=== PATIENT | female | born 1945 | race Two or more races ===

== ENCOUNTER 2020-03-29 22:01 | Inpatient (IN) | payer MEDICARE, OTHER ==
[~2020-03-29] VITALS: Ht 165.1 cm; Wt 99.3 kg
[2020-03-29 22:12] VITALS: BP 126/78
[2020-03-29] MEDS ORDERED: GLIPIZIDE5 MG ORAL (22:26)
[2020-03-29] MEDS ORDERED: METOPROLOL SUC100 MG ORAL (22:27)
[2020-03-29] MEDS ORDERED: METFORMIN HCL500 M1 ORAL (22:28)
[2020-03-29] MEDS ORDERED: TRAMADOL HCL50 MG ORAL (22:28)
[2020-03-29] MEDS ORDERED: ZOFRAN4 M3 ORAL (22:28)
[2020-03-29 23:38] LABS: BASOPHILS % (AUTO) 1.1 % (0.0-2.0); EOSINOPHILS % (AUTO) 0.8 % (0.0-3.0); HEMATOCRIT 38.1 % (37.0-47.0); HEMOGLOBIN 13.4 G/DL (12.0-16.0); LYMPHOCYTES % (AUTO) 25.8 % (20.0-45.0); MEAN CORPUSCULAR VOLUME 89 FL (80-99); MONOCYTES % (AUTO) 9.4 % (1.0-10.0); NEUTROPHILS % (AUTO) 62.9 % (45.0-75.0); PLATELET COUNT 204 K/UL (150-450); RED BLOOD COUNT 4.29 M/UL (4.20-5.40); RED CELL DISTRIBUTION WIDTH 15.9 % (11.6-14.8); WHITE BLOOD COUNT 7.9 K/UL (4.8-10.8)
[2020-03-29 23:50] LABS: CALCIUM 9.8 MG/DL (8.5-10.1); CREATININE 1.4 MG/DL (0.55-1.30)
[2020-03-30 00:01] LABS: ALBUMIN 2.6 G/DL (3.4-5.0); ALBUMIN/GLOBULIN RATIO 0.5 (1.0-2.7); BILIRUBIN,TOTAL 0.4 MG/DL (0.2-1.0)
[2020-03-30 00:10] VITALS: BP 136/58
[2020-03-30 00:12] LABS: APPEARANCE,URINE SLIGHTLY CLOUDY; BILIRUBIN, URINE NEGATIVE (NEGATIVE); GLUCOSE, URINE (UA) NEGATIVE (NEGATIVE); KETONES,URINE 3+ (NEGATIVE); LEUKOCYTE ESTERASE ,URINE 1+ (NEGATIVE); NITRITE,URINE NEGATIVE (NEGATIVE); PH,URINE 5 (4.5-8.0); PROTEIN,URINE 2+ (NEGATIVE); UROBILINOGEN,URINE 1 MG/DL (0.0-1.0)
[2020-03-30 00:13] LABS: COLOR,URINE YELLOW
[2020-03-30] MEDS ORDERED: D5 1/2NS 1000ml IV ONE (00:15)
--- NOTE | 2020-03-30 01:18 | Diagnostic Imaging Report ---
EXAM: XR Chest, 1 View CLINICAL HISTORY: WEAK TECHNIQUE: Frontal view of the chest. COMPARISON: No relevant prior studies available. FINDINGS: Lungs: Bilateral mid and lower lung ill-defined opacity could represent some component of atelectasis or consolidation. Low lung volumes with bronchovascular crowding. Pleural space: Likely small right pleural effusion. No pneumothorax. Heart: Cardiomegaly. Mediastinum: Prominent right hilum could represent vascular enlargement or hilar adenopathy. Bones/joints: Possibly sclerotic right scapula can be further evaluated at CT. Soft tissues: Left axillary surgical clips. IMPRESSION: 1. Bilateral mid and lower lung ill-defined opacity could represent some component of atelectasis or consolidation. 2. Recommend contrast enhanced CT chest to further characterize possible hilar mass or vascular enlargement. Neoplasm not excluded. 3. Likely small right pleural effusion. 4. Low lung volumes with bronchovascular crowding. 5. Possibly sclerotic right scapula can be further evaluated at CT. 6. Cardiomegaly. 7. Left axillary surgical clips.
[2020-03-30] MEDS ORDERED: Cefepime HCl 1 GM in D5W 55 ML IVPB ONE (02:00)
[2020-03-30] MEDS ORDERED: Azithromycin 500 MG in NS 275 ML IV ONE (02:00)
[2020-03-30 02:27] VITALS: BP 132/53
--- NOTE | 2020-03-30 02:32 | Emergency Room Report ---
History of Present Illness General Chief Complaint: Generalized Weakness Source: Patient, EMS Present Illness HPI 74-year-old female presents for evaluation. Brought in by EMS from home. Per family patient not eating well and drinking well for the last several days. Had been seen at [facility] for this. There was a discussion of a G- tube but patient declined. There was discussion of hospice been no action has been taken yet. Per family patient feels weak. Denies fevers or chills. Denies chest pain or shortness of breath. No nausea or vomiting. No other aggravating relieving factors. No other associated symptoms Allergies: Coded Allergies: No Known Allergies (Unverified , 03/29/20) COVID-19 Screening Contact w/high risk pt: No Experienced COVID-19 symptoms?: No COVID-19 Testing performed LAN MANAGER: No Patient History Past Medical History: DM, HTN Past Surgical History: none Pertinent Family History: none Social History: Denies: smoking, alcohol use, drug use Now: No Immunizations: UTD Reviewed Nursing Documentation: PMH: Agreed; PSxH: Agreed Nursing Documentation-PMH Past Medical History: No History, Except For Hx Hypertension: Yes Hx Diabetes: Yes Review of Systems All Other Systems: negative except mentioned in HPI Physical Exam Vital Signs Date Time Temp Pulse Resp B/P (MAP) Pulse Ox O2 Delivery O2 Flow Rate FiO2 03/29/20 22:12 98.4 80 20 106/64 (78) 99 Nasal Cannula 2.0 Sp02 EP Interpretation: reviewed, normal General Appearance: no apparent distress, alert, GCS 15, non-toxic, obese Head: normocephalic, atraumatic Eyes: bilateral eye normal inspection, bilateral eye PERRL ENT: hearing grossly normal, normal pharynx, no angioedema, normal voice Neck: full range of motion, supple/symm/no masses Respiratory: chest non-tender, lungs clear, normal breath sounds, speaking full sentences Cardiovascular #1: regular rate, rhythm, no edema Cardiovascular #2: 2+ carotid (R), 2+ carotid (L), 2+ radial (R), 2+ radial ( L), 2+ dorsalis pedis (R), 2+ dorsalis pedis (L) Gastrointestinal: normal bowel sounds, non tender, soft, non-distended, no guarding, no rebound Rectal: deferred Genitourinary: normal inspection, no CVA tenderness Musculoskeletal: back normal, normal range of motion, gait/station normal, non-tender Neurologic: alert, motor strength/tone normal, oriented x3, sensory intact, responsive, speech normal Psychiatric: judgement/insight normal, memory normal, mood/affect normal, no suicidal/homicidal ideation Reflexes: 3+ bicep (R), 3+ bicep (L), 3+ tricep (R), 3+ tricep (L), 3+ knee (R), 3+ knee (L) Skin: other - see nursing notes Lymphatic: no adenopathy Medical Decision Making Diagnostic Impression: Primary Impression: Episode of generalized weakness Additional Impressions: Pneumonia Qualified Codes: J18.9 - Pneumonia, unspecified organism FTT (failure to thrive) in adult ER Course Hospital Course 74-year-old female presenting to ED with generalized weakness, poor intake Differential diagnoses include: Pneumonia, UTI, sepsis, dehydration, NH/unstable angina Clinical course Patient placed on stretcher. 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 After initial history and physical, I ordered labs, IV fluids, EKG, chest x-ray, blood cultures, UA. Labs - BUN/Cr elevated, no leukocytosis, UA negative EKG - NSR no acute ischemic changes interpreted by me CXR - R sided consolidation rapid covid negative Abx given. IVFs given Case discussed with Dr Barreto and they agreed to admit patient to their service for further care and support I feel this is a highly complex case requiring extensive working including EKG/Rhythm strip, Xray/CT/US, Blood/urine lab work, repeat exams while in ED, and administration of strong opiates/narcotics for pain control, admission to hospital or close patient follow up. Diagnosis - FTT, pneumonia, generalized weakness Patient admitted to floor in serious condition Laboratory Tests Test 03/29/20 22:40 03/29/20 23:50 White Blood Count 7.9 K/UL (4.8-10.8) Red Blood Count 4.29 M/UL (4.20-5.40) Hemoglobin 13.4 G/DL (12.0-16.0) Hematocrit 38.1 % (37.0-47.0) Mean Corpuscular Volume 89 FL (80-99) Mean Corpuscular Hemoglobin 31.1 PG (27.0-31.0) H Mean Corpuscular Hemoglobin Concent 35.1 G/DL (32.0-36.0) Red Cell Distribution Width 15.9 % (11.6-14.8) H Platelet Count 204 K/UL (150-450) Mean Platelet Volume 8.8 FL (6.5-10.1) Neutrophils (%) (Auto) 62.9 % (45.0-75.0) Lymphocytes (%) (Auto) 25.8 % (20.0-45.0) Monocytes (%) (Auto) 9.4 % (1.0-10.0) Eosinophils (%) (Auto) 0.8 % (0.0-3.0) Basophils (%) (Auto) 1.1 % (0.0-2.0) Sodium Level 137 MMOL/L (136-145) Potassium Level 4.0 MMOL/L (3.5-5.1) Chloride Level 99 MMOL/L (98-107) Carbon Dioxide Level 26 MMOL/L (21-32) Anion Gap 12 mmol/L (5-15) Blood Urea Nitrogen 31 mg/dL (7-18) H Creatinine 1.4 MG/DL (0.55-1.30) H Estimat Glomerular Filtration Rate 36.7 mL/min (>60) Glucose Level 159 MG/DL (74-106) H Lactic Acid Level 1.10 mmol/L (0.4-2.0) Calcium Level 9.8 MG/DL (8.5-10.1) Total Bilirubin 0.4 MG/DL (0.2-1.0) Aspartate Amino Transf (AST/SGOT) 46 U/L (15-37) H Alanine Aminotransferase (ALT/SGPT) 15 U/L (12-78) Alkaline Phosphatase 98 U/L (46-116) Pro-B-Type Natriuretic Peptide 287 pg/mL (0-125) H Total Protein 7.6 G/DL (6.4-8.2) Albumin 2.6 G/DL (3.4-5.0) L Globulin 5.0 g/dL Albumin/Globulin Ratio 0.5 (1.0-2.7) L Urine Color Yellow Urine Appearance Slightly cloudy Urine pH 5 (4.5-8.0) Urine Specific [place] 1.025 (1.005-1.035) Urine Protein 2+ (NEGATIVE) H Urine Glucose (UA) Negative (NEGATIVE) Urine Ketones 3+ (NEGATIVE) H Urine Blood Negative (NEGATIVE) Urine Nitrite Negative (NEGATIVE) Urine Bilirubin Negative (NEGATIVE) Urine Urobilinogen 1 MG/DL (0.0-1.0) H Urine Leukocyte Esterase 1+ (NEGATIVE) H Urine RBC 0-2 /HPF (0 - 2) Urine WBC 0-2 /HPF (0 - 2) Urine Squamous Epithelial Cells Few /LPF (NONE/OCC) Urine Bacteria Few /HPF (NONE) Urine Hyaline Casts 2-4 /LPF (NONE) H Urine Granular Casts 0-2 /LPF (NONE) H EKG Diagnostic Results Rate: normal Rhythm: NSR ST Segments: no acute changes ASA given to the pt in ED: No Rhythm Strip Diag. Results EP Interpretation: yes Rhythm: NSR, no PVC's, no ectopy Chest X-Ray Diagnostic Results Chest X-Ray Diagnostic Results : Chest X-Ray Ordered: Yes # of Views/Limited/Complete: 1 View Indication: Other EP Interpretation: Yes Interpretation: no pneumothorax, other - R lung consolidation Impression: Other - PNA Electronically Signed by: Electronically signed by Marciano Frias MD Last Vital Signs Date Time Temp Pulse Resp B/P (MAP) Pulse Ox O2 Delivery O2 Flow Rate FiO2 03/29/20 22:12 91 20 Nasal Cannula 2.0 03/29/20 22:12 98.4 126/78 99 Status: improved Disposition: ADMITTED INPATIENT Condition: Serious Referrals: NON PHYSICIAN (PCP) Marcinao Frias MD Mar 30, 2020 02:32
[2020-03-30] MEDS ORDERED: Potassium Chloride 10 MEQ in D5 1/2NS 1,000 ML IV SCH (06:00)
[2020-03-30] MEDS: D5 1/2NS 1,000 ML IV SCH ×2 (06:24→21:28)
[2020-03-30 08:00] VITALS: BP 134/81
[2020-03-30] MEDS: Aspirin EC 81mg tab ORAL SCH (09:00)
--- NOTE | 2020-03-30 09:45 | History and Physical Report ---
DATE OF ADMISSION: 03/30/2020 CHIEF COMPLAINT: Failure to thrive. HISTORY OF PRESENT ILLNESS: Patient is a 74-year-old female who was apparently brought in by family members because of poor p.o. intake. She apparently was hospitalized at an outside hospital, was offered a G-tube, but family declined. She has not been eating well at home. Family brought her in reportedly with concerns about poor p.o. intake and for possible hospice evaluation. PAST MEDICAL HISTORY: Patient does not recall. PAST SURGICAL HISTORY: Unknown. CURRENT MEDICATIONS: Unknown. FAMILY HISTORY: Unknown. SOCIAL HISTORY: There is no known history of tobacco, ethanol, or drugs. REVIEW OF SYSTEMS: GENERAL: No fever or chills. HEENT: No headaches or visual changes. CARDIOPULMONARY: No chest pain or shortness of breath. GASTROINTESTINAL: No nausea or vomiting. Positive anorexia. GENITOURINARY: No urgency or frequency. MUSCULOSKELETAL: No joint pain or swelling. NEUROLOGIC: No evidence of seizures. PHYSICAL EXAMINATION: VITAL SIGNS: Temperature 98, pulse 81, respirations 18, blood pressure 136/58. GENERAL: Patient is well developed, in no apparent distress. HEART: Regular rate and rhythm. LUNGS: Clear. Patient appears to have a mastectomy on the left side. ABDOMEN: Soft, nontender, nondistended. EXTREMITIES: No clubbing or cyanosis. LABORATORY DATA: UA was clear. White count 7, hemoglobin 13. Sodium 137, BUN 31, creatinine 1.4. ASSESSMENT: This is an elderly female with no known past medical history presented with complaints of anorexia and failure to thrive. PLAN: We will try to contact family members regarding patient's past medical history. We will hydrate gently. Empiric antibiotics to cover for pneumonia. We will consider CT scan of the chest, abdomen, and pelvis. Encourage p.o. intake. Dennis Barreto M.D. DR: DAWSON JOB#: [id number] CC:
[2020-03-30] MEDS ORDERED: Varibar Thin Liquid powder 148gm MC PRN (10:15)
[2020-03-30] MEDS ORDERED: Varibar Nectar 240ml MC PRN (10:15)
[2020-03-30] MEDS ORDERED: Varibar Pudding 230ml MC PRN (10:15)
[2020-03-30] MEDS ORDERED: Varibar Honey 250ml MC PRN (10:15)
[2020-03-30 10:45] LABS: BASOPHILS % (AUTO) 1.2 % (0.0-2.0); EOSINOPHILS % (AUTO) 1.6 % (0.0-3.0); HEMATOCRIT 39.4 % (37.0-47.0); LYMPHOCYTES % (AUTO) 30.3 % (20.0-45.0); MEAN CORPUSCULAR VOLUME 93 FL (80-99); NEUTROPHILS % (AUTO) 57.9 % (45.0-75.0); PLATELET COUNT 199 K/UL (150-450); RED BLOOD COUNT 4.24 M/UL (4.20-5.40); RED CELL DISTRIBUTION WIDTH 16.3 % (11.6-14.8); WHITE BLOOD COUNT 7.9 K/UL (4.8-10.8)
[2020-03-30 11:17] LABS: ALANINE AMINOTRANSFERASE 14 U/L (12-78); ALBUMIN 2.6 G/DL (3.4-5.0); ALBUMIN/GLOBULIN RATIO 0.5 (1.0-2.7); ALKALINE PHOSPHATASE 98 U/L (46-116); ANION GAP 13 mmol/L (5-15); ASPARTATE AMINO TRANSFERASE 48 U/L (15-37); BILIRUBIN,TOTAL 0.4 MG/DL (0.2-1.0); BLOOD UREA NITROGEN 27 mg/dL (7-18); CALCIUM 9.6 MG/DL (8.5-10.1); CARBON DIOXIDE 26 MMOL/L (21-32); CHLORIDE 100 MMOL/L (98-107); CREATININE 1.2 MG/DL (0.55-1.30); POTASSIUM 3.7 MMOL/L (3.5-5.1); SODIUM 139 MMOL/L (136-145)
[2020-03-30 12:00] VITALS: BP 154/78
--- NOTE | 2020-03-30 12:15 | Consultation ---
DATE OF CONSULTATION: 03/30/2020 CHIEF COMPLAINT: Failure to thrive. HISTORY OF PRESENT ILLNESS: This is a 74-year-old female was brought to the hospital by family because the patient has poor p.o. intake. Apparently, this has been going on for a while and apparently in the past the patient refused PEG but now agreeing. PAST MEDICAL HISTORY: The patient has no history per chart. PAST SURGICAL HISTORY: No surgeries. ALLERGIES: No known drug allergies. MEDICATIONS: Please see medication reconciliation list. FAMILY HISTORY: Noncontributory. SOCIAL HISTORY: There is no history of tobacco, alcohol, or drug abuse. PHYSICAL EXAMINATION: VITAL SIGNS: Temperature 97.7, pulse is 82, respirations 20, blood pressure 134/81. HEENT: Normocephalic and atraumatic. Sclerae anicteric. NECK: Supple. No evidence of obvious lymphadenopathy. CARDIOVASCULAR: Regular rate and rhythm. Plus S1-S2. LUNGS: Clear to auscultation bilaterally. ABDOMEN: Soft, nontender. No rebound. No guarding. No peritoneal sign. EXTREMITIES: No cyanosis, no clubbing, no edema. LABORATORY DATA: White count 7.9, hemoglobin 13, hematocrit 39, platelet count is 199. BUN is 31, creatinine is 1.4. Hemoglobin A1c 7.8. Albumin is 2.6. ASSESSMENT AND PLAN: A 74-year-old female with failure to thrive, diabetes, hypoalbuminemia. I spoke with the daughter over the phone. She agreed for the EGD and PEG placement. The procedure was explained to her in detail. Plan to schedule the patient for tomorrow. I want to thank, Dr. Barreto, for this kind referral. Alonzo Boothe M.D. DR: Adelfo JOB#: [id number] CC: Dennis Barreto M.D.
[2020-03-30] MEDS: NovoLOG Insulin Flexpen SUBQ SCH ×3 (12:54→21:30)
[2020-03-30] MEDS: Piperacillin/Tazobactam 3.375 GM in NS 110 ML IVPB SCH ×2 (14:31→21:28)
[2020-03-30 16:00] VITALS: BP 148/76
[2020-03-30 20:00] VITALS: BP 155/85
[2020-03-31] VITALS: BP 139/80
[2020-03-31 03:54] VITALS: BP 159/91
[2020-03-31] MEDS: Piperacillin/Tazobactam 3.375 GM in NS 110 ML IVPB SCH ×3 (05:09→21:24)
[2020-03-31] MEDS: NovoLOG Insulin Flexpen SUBQ SCH ×4 (06:39→21:25)
[2020-03-31 07:05] LABS: BASOPHILS % (AUTO) 0.7 % (0.0-2.0); HEMATOCRIT 37.9 % (37.0-47.0); HEMOGLOBIN 12.7 G/DL (12.0-16.0); LYMPHOCYTES % (AUTO) 23.7 % (20.0-45.0); MEAN CORPUSCULAR VOLUME 94 FL (80-99); MONOCYTES % (AUTO) 9.7 % (1.0-10.0); NEUTROPHILS % (AUTO) 63.9 % (45.0-75.0); PLATELET COUNT 188 K/UL (150-450); RED BLOOD COUNT 4.04 M/UL (4.20-5.40); RED CELL DISTRIBUTION WIDTH 15.7 % (11.6-14.8); WHITE BLOOD COUNT 8.4 K/UL (4.8-10.8)
[2020-03-31 08:00] VITALS: BP 166/90
[2020-03-31 08:18] LABS: ALBUMIN 2.4 G/DL (3.4-5.0); ALBUMIN/GLOBULIN RATIO 0.5 (1.0-2.7); BILIRUBIN,TOTAL 0.3 MG/DL (0.2-1.0); CALCIUM 9.2 MG/DL (8.5-10.1); CREATININE 1.3 MG/DL (0.55-1.30); POTASSIUM 3.5 MMOL/L (3.5-5.1)
[2020-03-31] MEDS: D5 1/2NS 1,000 ML IV SCH ×2 (08:51→21:24)
[2020-03-31] MEDS: Aspirin EC 81mg tab ORAL SCH (08:51)
--- NOTE | 2020-03-31 09:06 | General Progress Note ---
Subjective ROS Limited/Unobtainable: No Constitutional: Reports: malaise, weakness HEENT: Reports: no symptoms Cardiovascular: Reports: edema Respiratory: Reports: no symptoms Gastrointestinal/Abdominal: Reports: no symptoms Genitourinary: Reports: no symptoms Neurologic/Psychiatric: Reports: anxiety Endocrine: Reports: no symptoms Hematologic/Lymphatic: Reports: no symptoms Allergies: Coded Allergies: No Known Allergies (Unverified , 03/29/20) All Systems: reviewed and negative except above Subjective no complaints. no chest pain or sob. no fevers or chills. poor po intake. CT pending. Objective Last 24 Hour Vital Signs Date Time Temp Pulse Resp B/P (MAP) Pulse Ox O2 Delivery O2 Flow Rate FiO2 03/31/20 03:54 98.9 109 20 159/91 (113) 93 03/31/20 00:00 98.0 106 22 139/80 (99) 93 03/30/20 21:00 Nasal Cannula 2.0 03/30/20 20:00 98.1 104 22 155/85 (108) 95 03/30/20 16:00 97.6 95 20 148/76 (100) 96 03/30/20 12:00 97.4 99 20 154/78 (103) 96 03/30/20 09:00 Nasal Cannula 2.0 Intake and Output 03/30/20 03/31/20 19:02 07:02 Intake Total 240 ml 150 ml Output Total 200 ml 350 ml Balance 40 ml -200 ml Intake Oral 240 ml 150 ml Output Urine Total 200 ml 350 ml Laboratory Tests 03/30/20 10:38: White Blood Count 7.9, Red Blood Count 4.24, Hemoglobin 13.0, Hematocrit 39.4, Mean Corpuscular Volume 93, Mean Corpuscular Hemoglobin 30.6, Mean Corpuscular Hemoglobin Concent 32.9, Red Cell Distribution Width 16.3H, Platelet Count 199, Mean Platelet Volume 8.6, Neutrophils (%) (Auto) 57.9, Lymphocytes (%) (Auto) 30.3, Monocytes (%) (Auto) 9.0, Eosinophils (%) (Auto) 1.6, Basophils (%) (Auto) 1.2, Sodium Level 139, Potassium Level 3.7, Chloride Level 100, Carbon Dioxide Level 26, Anion Gap 13, Blood Urea Nitrogen 27H, Creatinine 1.2, Estimat Glomerular Filtration Rate 43.9, Glucose Level 176H, Hemoglobin A1c 7.8H, Calcium Level 9.6, Total Bilirubin 0.4, Aspartate Amino Transf (AST/SGOT) 48H, Alanine Aminotransferase (ALT/SGPT) 14, Alkaline Phosphatase 98, Total Protein 7.5, Albumin 2.6L, Globulin 4.9, Albumin/Globulin Ratio 0.5L, Vitamin B12 Level > 2000H, Folate 7.2L, Thyroid Stimulating Hormone (TSH) 3.717 03/30/20 11:55: POC Whole Blood Glucose 167H 03/30/20 21:18: POC Whole Blood Glucose [Pending] 03/31/20 05:00: White Blood Count 8.4, Red Blood Count 4.04L, Hemoglobin 12.7, Hematocrit 37.9, Mean Corpuscular Volume 94, Mean Corpuscular Hemoglobin 31.4H, Mean Corpuscular Hemoglobin Concent 33.5, Red Cell Distribution Width 15.7H, Platelet Count 188, Mean Platelet Volume 7.9, Neutrophils (%) (Auto) 63.9, Lymphocytes (%) (Auto) 23.7, Monocytes (%) (Auto) 9.7, Eosinophils (%) (Auto) 2.0, Basophils (%) (Auto) 0.7, Sodium Level 137, Potassium Level 3.5, Chloride Level 100, Carbon Dioxide Level 27, Anion Gap 10, Blood Urea Nitrogen 24H, Creatinine 1.3, Estimat Glomerular Filtration Rate 40.1, Glucose Level 174H, Calcium Level 9.2, Total Bilirubin 0.3, Aspartate Amino Transf (AST/SGOT) 44H, Alanine Aminotransferase (ALT/SGPT) 14, Alkaline Phosphatase 92, Total Protein 7.1, Albumin 2.4L, Globulin 4.7, Albumin/Globulin Ratio 0.5L, Prothrombin Time 11.3, Prothromb Time International Ratio 1.0, Activated Partial Thromboplast Time 26 03/31/20 06:33: POC Whole Blood Glucose [Pending] Height (Feet): 5 Height (Inches): 2.00 Weight (Pounds): 219 General Appearance: WD/WN, alert EENT: PERRL/EOMI Neck: non-tender, normal alignment, supple Cardiovascular: normal peripheral pulses, normal rate Respiratory/Chest: chest wall non-tender, lungs clear, normal breath sounds Abdomen: normal bowel sounds, non tender, soft, no organomegaly Edema: no edema noted Pedal (L), no edema noted Pedal (R) Neurologic: optimization engineer II-XII grossly normal, alert, responsive Assessment/Plan Problem List: (1) Pneumonia ICD Codes: J18.9 - Pneumonia, unspecified organism SNOMED: 703733277 Qualifiers: Qualified Codes: J18.9 - Pneumonia, unspecified organism (2) FTT (failure to thrive) in adult ICD Codes: R62.7 - Adult failure to thrive SNOMED: 643021173 (3) Episode of generalized weakness ICD Codes: R53.1 - Weakness SNOMED: 24406704 Status: stable Assessment/Plan: encourage pos ct chest abd pelvis possible GT if not eating- family requesting GI eval iv abx for pna BP rx Dennis Barreto MD Mar 31, 2020 09:06
[2020-03-31] MEDS ORDERED: HydrALAZINE 25mg tab ORAL PRN (09:15)
[2020-03-31 12:00] VITALS: BP 160/91
[2020-03-31 16:00] VITALS: BP 144/83
--- NOTE | 2020-03-31 16:39 | Consultation ---
History of Present Illness General Date patient seen: Mar 31, 2020 Reason for Hospitalization: Generalized Weakness Present Illness HPI 74 year old female brought in by family for decreased oral intake and ftt. noted to have abnormal labs and decubitus ulcer on admission. surgery called to evaluate and assist with care. patient seen, chart reviewed, patient examined. Allergies: Coded Allergies: No Known Allergies (Unverified , 03/29/20) COVID-19 Screening Contact w/high risk pt: Yes Experienced COVID-19 symptoms?: No Medication History Scheduled Glipizide* (Glipizide*), 10 MG ORAL BIDAC, (Reported) Metformin Hcl* (Metformin Hcl*), 500 MG ORAL TWICE A DAY, (Reported) Metoprolol Succinate* (Metoprolol Succinate*), 100 MG ORAL DAILY, (Reported) Scheduled PRN Ondansetron* (Zofran*), 4 MG ORAL DAILY PRN for Nausea & Vomiting, (Reported) Tramadol Hcl* (Ultram*), 50 MG ORAL Q6H PRN for For Pain, (Reported) Patient History Limited by: medical condition History Provided By: Medical Record, PMD Healthcare decision maker Resuscitation status Advanced Directive on File Past Medical/Surgical History Past Medical/Surgical History: (1) Pneumonia (2) FTT (failure to thrive) in adult (3) Episode of generalized weakness Review of Systems Review of Symptoms General ROS: no weight loss or fever Psychological ROS: no depression or mood changes, no memory loss Ophthalmic ROS: no visual changes or eye irritation ENT ROS: no nasal congestion, hearing loss, dizziness Allergy and Immunology ROS: no allergic symptoms or urticaria Hematological and Lymphatic ROS: no swollen glands, unusual bleeding or bruising Endocrine ROS: no polyuria, polydipsia, weight changes, temperature intolerance Respiratory ROS: no cough, shortness of breath, or wheezing Cardiovascular ROS: no chest pain or dyspnea on exertion Gastrointestinal ROS: denies abdominal pain, bright red blood in stool. Musculoskeletal ROS: no myalgias or arthralgias Neurological ROS: no TIA or stroke symptoms Dermatological ROS: no new or changing skin lesions, rashes or pruritis Physical Exam Physical Exam General appearance: alert, cooperative, no distress, appears stated age Head: Normocephalic, without obvious abnormality, atraumatic Eyes: conjunctivae/corneas clear. PERRL, EOM's intact. Fundi benign Throat: Lips, mucosa, and tongue normal. Teeth and gums normal Neck: supple, symmetrical, trachea midline, no adenopathy, thyroid: not enlarg ed, symmetric, no tenderness/mass/nodules, no carotid bruit and no JVD Lungs: clear to auscultation bilaterally Heart: regular rate and rhythm, S1, S2 normal, no murmur, click, rub or gallop Abdomen: soft, non-tender. Bowel sounds normal. No masses, no organomegaly Extremities: extremities normal, atraumatic, no cyanosis or edema Pulses: 2+ and symmetric Skin: Skin color, texture, turgor normal. No rashes or lesions Neurologic: Grossly normal Last 24 Hour Vital Signs Date Time Temp Pulse Resp B/P (MAP) Pulse Ox O2 Delivery O2 Flow Rate FiO2 03/31/20 16:00 98.0 96 18 144/83 (103) 96 03/31/20 12:00 97.9 99 20 160/91 (114) 94 03/31/20 10:15 105 166/91 03/31/20 09:00 Nasal Cannula 2.0 03/31/20 08:00 98.3 105 20 166/90 (115) 95 03/31/20 03:54 98.9 109 20 159/91 (113) 93 03/31/20 00:00 98.0 106 22 139/80 (99) 93 03/30/20 21:00 Nasal Cannula 2.0 03/30/20 20:00 98.1 104 22 155/85 (108) 95 Intake and Output 03/30/20 03/31/20 19:00 07:00 Intake Total 240 ml 150 ml Output Total 200 ml 350 ml Balance 40 ml -200 ml Intake Oral 240 ml 150 ml Output Urine Total 200 ml 350 ml Laboratory Tests Test 03/30/20 21:18 03/31/20 05:00 03/31/20 06:33 03/31/20 12:11 POC Whole Blood Glucose Pending Pending 252 MG/DL (74-106) H White Blood Count 8.4 K/UL (4.8-10.8) Red Blood Count 4.04 M/UL (4.20-5.40) L Hemoglobin 12.7 G/DL (12.0-16.0) Hematocrit 37.9 % (37.0-47.0) Mean Corpuscular Volume 94 FL (80-99) Mean Corpuscular Hemoglobin 31.4 PG (27.0-31.0) H Mean Corpuscular Hemoglobin Concent 33.5 G/DL (32.0-36.0) Red Cell Distribution Width 15.7 % (11.6-14.8) H Platelet Count 188 K/UL (150-450) Mean Platelet Volume 7.9 FL (6.5-10.1) Neutrophils (%) (Auto) 63.9 % (45.0-75.0) Lymphocytes (%) (Auto) 23.7 % (20.0-45.0) Monocytes (%) (Auto) 9.7 % (1.0-10.0) Eosinophils (%) (Auto) 2.0 % (0.0-3.0) Basophils (%) (Auto) 0.7 % (0.0-2.0) Prothrombin Time 11.3 SEC (9.30-11.50) Prothromb Time International Ratio 1.0 (0.9-1.1) Activated Partial Thromboplast Time 26 SEC (23-33) Sodium Level 137 MMOL/L (136-145) Potassium Level 3.5 MMOL/L (3.5-5.1) Chloride Level 100 MMOL/L (98-107) Carbon Dioxide Level 27 MMOL/L (21-32) Anion Gap 10 mmol/L (5-15) Blood Urea Nitrogen 24 mg/dL (7-18) H Creatinine 1.3 MG/DL (0.55-1.30) Estimat Glomerular Filtration Rate 40.1 mL/min (>60) Glucose Level 174 MG/DL (74-106) H Calcium Level 9.2 MG/DL (8.5-10.1) Total Bilirubin 0.3 MG/DL (0.2-1.0) Aspartate Amino Transf (AST/SGOT) 44 U/L (15-37) H Alanine Aminotransferase (ALT/SGPT) 14 U/L (12-78) Alkaline Phosphatase 92 U/L (46-116) Total Protein 7.1 G/DL (6.4-8.2) Albumin 2.4 G/DL (3.4-5.0) L Globulin 4.7 g/dL Albumin/Globulin Ratio 0.5 (1.0-2.7) L Height (Feet): 5 Height (Inches): 2.00 Weight (Pounds): 219 Medications Current Medications Medications (Trade) Dose Ordered Sig/Chloe Route PRN Reason Start Time Stop Time Status Last Admin Dose Admin Acetaminophen (Tylenol) 650 mg Q4H PRN ORAL Mild Pain (Pain Scale 1-3) 03/31/20 05:45 04/30/20 05:44 03/31/20 06:30 Aspirin (Ecotrin) 81 mg DAILY ORAL 03/30/20 09:00 05/14/20 08:59 03/31/20 08:51 Barium Sulfate (Readi-Cat 2) 450 ml NOW PRN ORAL Radiology Procedure 03/30/20 08:45 04/01/20 08:44 Barium Sulfate (Varibar Honey) 250 ml NOW PRN MC RAD 03/30/20 10:15 04/02/20 10:11 Barium Sulfate (Varibar Fowler) 240 ml NOW PRN MC RAD 03/30/20 10:15 04/02/20 10:11 Barium Sulfate (Varibar Pudding) 230 ml NOW PRN MC RAD 03/30/20 10:15 04/02/20 10:11 Barium Sulfate (Varibar Thin Liquid powder) 148 gm NOW PRN MC RAD 03/30/20 10:15 04/02/20 10:11 Dextrose (Dextrose 50%) 25 ml Q30M PRN IV Hypoglycemia 03/30/20 08:45 06/28/20 08:44 Dextrose (Dextrose 50%) 50 ml Q30M PRN IV Hypoglycemia 03/30/20 08:45 06/28/20 08:44 Dextrose/Sodium Chloride 1,000 ml @ 75 mls/hr [id number] IV 03/30/20 06:00 04/29/20 05:59 03/31/20 08:51 Hydralazine HCl (Apresoline) 25 mg Q6H PRN ORAL For High Blood Pressure 03/31/20 09:15 06/29/20 09:14 Insulin Aspart (NovoLOG) BEFORE MEALS AND HS SUBQ 03/30/20 11:30 06/28/20 11:29 03/31/20 11:30 Metoprolol Tartrate (Lopressor) 25 mg Q12HR ORAL 03/31/20 09:15 06/29/20 09:14 03/31/20 10:15 Piperacillin Sod/ Tazobactam Sod 3.375 gm/Sodium Chloride 110 ml @ 27.5 mls/hr EVERY 8 HOURS IVPB 03/30/20 14:00 04/04/20 13:59 03/31/20 15:14 Assessment/Plan Problem List: (1) Decubitus skin ulcer Assessment & Plan: Pt presented on admission with Obesity, Multiple Pressure Injuries.DTPI Medial/Posterior upper R thigh. Surrounding skin is erythematous. Non-Blanchable erythema Sacrum with scattered moist pink epithelial within base of wound. Full Thickness Pressure Injury L Buttocks(L)2.5cm x (W)1.2cm. Base of wound is moist ,disha ,25% slough noted. Edges are macerated. Small amt serosanguineous exudate noted.non-blanchable erythema periwound. Full Thickness Pressure Injury L Ischium. (L)2.5cm x (W)0.5cm x (D)0.2cm. Base of wound is disha with scattered slough within base of wound. Edges are adherent but macerated. Surrounding non-blanchable erythema without induration. R Heel is boggy with non-blanchable erythema. L Heel is boggy with Non-Blanchable erythema. Tx.Plan: Cleanse Wounds L Buttocks with Saline. Apply Therahoney. Apply Moisture Barrier periwound. Cover with Optifoam drsg Daily and prn. Cleanse wound L Ischium with Saline, Apply Therahoney. Apply Moisture Barrier Paste periwound. Cover with Optifoam drsg Daily and prn. Apply Moisture Barrier Paste to Sacrum. Cover with Optifoam drsg. Change every 3 days and prn. Apply Moisture Barrier Paste to medial/posterior upper R thigh . Cover with Optifoam drsg. Change every 7 days and prn. Reposition at least every 2hours or as tolerated. Off-load heels with Pillow. APM/KYRA Mattress overlay. ICD Codes: L89.90 - Pressure ulcer of unspecified site, unspecified stage SNOMED: 301465158 (2) Pneumonia ICD Codes: J18.9 - Pneumonia, unspecified organism SNOMED: 301933237 Qualifiers: Qualified Codes: J18.9 - Pneumonia, unspecified organism (3) FTT (failure to thrive) in adult Assessment & Plan: DAILY ESTIMATED NEEDS: Needs based on Wound/ 62kg abw 25-30 kcals/kg 5453-3083 total kcals 1.5-2 g protein/kg 93-124 g total protein 25-30 mL/kg 3210-6546 total fluid mLs NUTRITION DIAGNOSIS: Increased protein and micronutrients needs R/T wound healing as evidenced by pt admitted w/ full thickness wounds @ lt buttock and lt ischium, and DTPI @ medial/posterior upper R thigh, admitted w/ FTT, currently NPO, awaiting SWIMMING TEACHER evaluation CURRENT DIET:NPO PO DIET RECOMMENDATIONS: Liberalized REGULAR w/ poor PO (texture per SWIMMING TEACHER) + Glucerna TID w/ meals ENTERAL NUTRITION RECOMMENDATIONS: IF INDICATED -> Glucerna 1.5 @ 45ml/hr x 24 hrs + Prosource 1pkt QD to provide 1080ml, 1620kcal, 89+11g prot, 820ml free water * IF MEDICALLY INDICATED AND GI ACCESS OBTAINED -> rec initiate Glucerna 1.5 @ 15ml/hr x 6hrs, advance 10ml q 4-6 hrs as tolerated to goal rate -> HOB over 30 degrees/ water flush per MD -> add Prosource 1pkt QD to better meet increased protein needs ADDITIONAL RECOMMENDATIONS: * Calibrated bedscale wt * W/ oral diet - rec Calorie Count x 48 hrs * Rec appetite stimulant * Wound healing: add MVI w/ mineral x1, Vit C 500mg BID ZnSO4 220mg QD x 10 days Giancarlo BID w/ diet order * Monitor BGs for hypoglycemia while NPO ICD Codes: R62.7 - Adult failure to thrive SNOMED: 315511560 (4) Episode of generalized weakness ICD Codes: R53.1 - Weakness SNOMED: 83027615 Zay Mares Mar 31, 2020 16:39
--- NOTE | 2020-03-31 17:12 | Diagnostic Imaging Report ---
CLINICAL INDICATION:Loss of appetite and failure to thrive TECHNIQUE: No oral contrast, reason not stated . No IV contrast, per referring physician request Spiral acquisitions obtained through the chest, abdomen, and pelvis. Multiplanar reconstructions were generated. Total dose length product 1445 mGycm. CTDIvol(s) 18 mGy. Radiation dose was minimized using automated exposure control COMPARISON: none FINDINGS Chest: There is extensive destruction of the manubrium. This appears to be associated with an ill-defined soft tissue opacity extending both deep and superficial to the manubrium, the boundaries of which are difficult to define given the absence of IV contrast appears to measure approximately 6.4 cm AP by 4 cm transverse by 5 cm craniocaudad. There is also destruction of the medial clavicles bilaterally. Mixed osteolytic osteosclerotic process is also seen involving the bilateral first and second ribs as well as the upper thoracic spine. Mixed osteolytic and osteoblastic process is also seen involving the body of the sternum. There is what appears to be a mostly healed pathologic fracture of the distal right clavicle. Numerous osteoblastic lesions are seen involving the cervical and thoracic spine, appearing to be mostly spared the lumbar spine with the possible exception of L1. There is questionably an osteoblastic process involving the intertrochanteric region of the right femur. No definite pelvic lesions are demonstrated. There is a large right pleural effusion. This results in compressive atelectasis of most of the right lower lobe as well as a significant portion of the right upper lobe. Some atelectasis and/or consolidation is also seen in the medial right middle lobe. There is also possibly some consolidation in the right upper lobe. There is a small to moderate left pleural effusion. This results in compressive atelectasis of a portion of the left lower lobe. Numerous linear opacities are seen elsewhere in the left lower lobe, as well as some nodular appearing consolidation. Numerous nodular subpleural opacities are seen in the upper and lower lobe on the left, as well as numerous intraparenchymal noncalcified nodules on the left. The heart size is normal. There is a small amount of pericardial fluid. There is also some soft tissue thickening within the pericardial fat adjacent to the anterior wall of the left lateral ventricle. There are prominent but not frankly enlarged mediastinal lymph nodes No axillary or chest wall mass or adenopathy is demonstrated. Surgical clips are seen in the left axilla and there is evidence of prior left mastectomy. Abdomen pelvis: The gallbladder is filled with high attenuation material. This may reflect contrast from a prior contrast study or milk of calcium bile. Lack of IV contrast limits assessment of the solid organs. A calcified granuloma is seen within the liver. No other focal liver lesions are demonstrated. The bile ducts are unremarkable. The pancreas is slightly atrophic. The spleen, adrenals, kidneys are unremarkable. No retroperitoneal or mesenteric mass or adenopathy. No pelvic mass or adenopathy. The uterus and ovaries are unremarkable. The rectum is distended with dense feces, measures up to 7 cm in diameter. There is mild rectal wall thickening as well as some thickening of the presacral fat. Lack of enteric contrast limits assessment of the remainder of the GI tract. Dense stool is seen elsewhere within the colon. No evidence of diverticulosis or diverticulitis. No small bowel distention. No free or loculated intraperitoneal gas or fluid is evident. The stomach and duodenum are unremarkable. The bones demonstrate degenerative spondylosis changes in addition to the findings previously reported IMPRESSION: Extensive destruction of the manubrium with associated soft tissue mass, as well as destructive changes involving the upper ribs, the medial clavicles, the body of the sternum, the upper thoracic spine. There are also osteoblastic lesions of the remainder of the thoracic spine. Suspect that this represents disseminated metastatic neoplasm, particularly in view of evidence of prior mastectomy. However, the relative localization to the upper axial skeleton and relative sparing of the lower axial skeleton is somewhat unusual, and a more localized inflammatory process or other process such as postradiation changes should also be considered. Healed pathologic fracture of the distal right clavicle Large right pleural effusion with resultant compressive atelectasis of much of the right lower lobe and upper lobe. Small to moderate left pleural effusion with resulting compressive atelectatic changes Numerous nodular subpleural opacities in the left upper and lower lobe as well as intraparenchymal noncalcified nodules in the left upper lobe. These could be neoplastic or postinflammatory or represent acute inflammation Small amount of pericardial fluid High attenuation material in the gallbladder, may reflect contrast from prior contrast study or milk of calcium bile Rectal distention with feces, could indicate rectal fecal impaction. Mild rectal wall thickening and thickening of the presacral fat. Indicate stercoral colitis. Other findings as noted, including old granulomatous disease within the liver the degenerative spondylosis. The CT scanner at [facility] is accredited by the [employer] and the scans are performed using protocols designed to limit radiation exposure to as low as reasonably achievable to attain images of sufficient resolution adequate for diagnostic evaluation.
[2020-03-31] MEDS: Ascorbic Acid 500mg tab ORAL SCH (17:18)
--- NOTE | 2020-03-31 19:57 | General Progress Note ---
Subjective Allergies: Coded Allergies: No Known Allergies (Unverified , 03/29/20) Subjective Above noted discussed with family patient with history of breast cancer since 1991 was in clinical remission until presented with recurrence in 2019 recently hospitalized at [facility] diagnosed with extensive bony involvement in chest with metastatic CA (same seen in CT today at [facility]) patient assigned to hospice care family report a 40 lb weight loss (260--> 220) Objective Last 24 Hour Vital Signs Date Time Temp Pulse Resp B/P (MAP) Pulse Ox O2 Delivery O2 Flow Rate FiO2 03/31/20 16:00 98.0 96 18 144/83 (103) 96 03/31/20 12:00 97.9 99 20 160/91 (114) 94 03/31/20 10:15 105 166/91 03/31/20 09:00 Nasal Cannula 2.0 03/31/20 08:00 98.3 105 20 166/90 (115) 95 03/31/20 03:54 98.9 109 20 159/91 (113) 93 03/31/20 00:00 98.0 106 22 139/80 (99) 93 03/30/20 21:00 Nasal Cannula 2.0 03/30/20 20:00 98.1 104 22 155/85 (108) 95 Intake and Output 03/30/20 03/31/20 19:00 07:00 Intake Total 240 ml 150 ml Output Total 200 ml 350 ml Balance 40 ml -200 ml Intake Oral 240 ml 150 ml Output Urine Total 200 ml 350 ml Laboratory Tests 03/30/20 21:18: POC Whole Blood Glucose [Pending] 03/31/20 05:00: White Blood Count 8.4, Red Blood Count 4.04L, Hemoglobin 12.7, Hematocrit 37.9, Mean Corpuscular Volume 94, Mean Corpuscular Hemoglobin 31.4H, Mean Corpuscular Hemoglobin Concent 33.5, Red Cell Distribution Width 15.7H, Platelet Count 188, Mean Platelet Volume 7.9, Neutrophils (%) (Auto) 63.9, Lymphocytes (%) (Auto) 23.7, Monocytes (%) (Auto) 9.7, Eosinophils (%) (Auto) 2.0, Basophils (%) (Auto) 0.7, Prothrombin Time 11.3, Prothromb Time International Ratio 1.0, Activated Partial Thromboplast Time 26, Sodium Level 137, Potassium Level 3.5, Chloride Level 100, Carbon Dioxide Level 27, Anion Gap 10, Blood Urea Nitrogen 24H, Creatinine 1.3, Estimat Glomerular Filtration Rate 40.1, Glucose Level 174H, Calcium Level 9.2, Total Bilirubin 0.3, Aspartate Amino Transf (AST/SGOT) 44H, Alanine Aminotransferase (ALT/SGPT) 14, Alkaline Phosphatase 92, Total Protein 7.1, Albumin 2.4L, Globulin 4.7, Albumin/Globulin Ratio 0.5L 03/31/20 06:33: POC Whole Blood Glucose [Pending] 03/31/20 12:11: POC Whole Blood Glucose 252H Height (Feet): 5 Height (Inches): 2.00 Weight (Pounds): 219 Objective Obese woman NCAT supple CTA RR abd soft, obese no edema Assessment/Plan Status: stable Assessment/Plan: Assessment - metastatic breast cancer - R>L pleural effusion - cancer cachexia - rectal stool impaction - poor prognosis Recommendations - Laxative - PPI - Reglan - Onc input - ? Thoracentesis - Level of care discussion Jack Connolly MD Mar 31, 2020 19:57
[2020-03-31 20:00] VITALS: BP 132/76
[2020-03-31] MEDS ORDERED: Sorbitol Solution UD 30ml ORAL SCH (20:30)
[2020-03-31] MEDS: Pantoprazole Inj IVP SCH (21:24)
[2020-04-01] VITALS: BP 145/82
[2020-04-01 04:00] VITALS: BP 119/49
[2020-04-01] MEDS: Piperacillin/Tazobactam 3.375 GM in NS 110 ML IVPB SCH ×3 (06:00→22:30)
[2020-04-01] MEDS: NovoLOG Insulin Flexpen SUBQ SCH ×4 (06:30→21:00)
[2020-04-01 06:52] LABS: BASOPHILS % (AUTO) 1.2 % (0.0-2.0); EOSINOPHILS % (AUTO) 1.7 % (0.0-3.0); HEMATOCRIT 38.4 % (37.0-47.0); HEMOGLOBIN 12.7 G/DL (12.0-16.0); LYMPHOCYTES % (AUTO) 31.4 % (20.0-45.0); MEAN CORPUSCULAR VOLUME 94 FL (80-99); NEUTROPHILS % (AUTO) 55.7 % (45.0-75.0); PLATELET COUNT 190 K/UL (150-450); RED BLOOD COUNT 4.11 M/UL (4.20-5.40); RED CELL DISTRIBUTION WIDTH 15.4 % (11.6-14.8); WHITE BLOOD COUNT 8.2 K/UL (4.8-10.8)
[2020-04-01 07:19] LABS: ALBUMIN 2.3 G/DL (3.4-5.0); ALBUMIN/GLOBULIN RATIO 0.5 (1.0-2.7); BILIRUBIN,TOTAL 0.4 MG/DL (0.2-1.0); CREATININE 1.5 MG/DL (0.55-1.30); POTASSIUM 3.5 MMOL/L (3.5-5.1)
[2020-04-01 08:00] VITALS: BP 120/71
--- NOTE | 2020-04-01 11:53 | Surgery Progress Note ---
Surgery Progress Note Subjective Additional Comments on air mattress CT reviewed. 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 Objective Last 24 Hour Vital Signs Date Time Temp Pulse Resp B/P (MAP) Pulse Ox O2 Delivery O2 Flow Rate FiO2 04/01/20 08:00 98.4 73 17 120/71 (87) 97 04/01/20 04:00 98.3 86 17 119/49 (72) 95 04/01/20 00:00 98.2 90 20 145/82 (103) 94 03/31/20 21:24 98 132/76 03/31/20 21:00 Nasal Cannula 2.0 03/31/20 20:00 98.5 98 18 132/76 (94) 93 03/31/20 16:00 98.0 96 18 144/83 (103) 96 03/31/20 12:00 97.9 99 20 160/91 (114) 94 I&O Intake and Output 03/31/20 04/01/20 19:00 07:00 Intake Total 225 ml 710.0 ml Output Total 300 ml Balance 225 ml 410.0 ml Intake Oral 150 ml IV Total 75 ml 710.0 ml Output Urine Total 300 ml Dressing: saturated Cardiovascular: RSR Respiratory: decreased breath sounds Abdomen: soft, non-tender, present bowel sounds Extremities: edema, no tenderness, no cyanosis Laboratory Tests Test 03/31/20 12:11 04/01/20 05:20 POC Whole Blood Glucose 252 MG/DL (74-106) H White Blood Count 8.2 K/UL (4.8-10.8) Red Blood Count 4.11 M/UL (4.20-5.40) L Hemoglobin 12.7 G/DL (12.0-16.0) Hematocrit 38.4 % (37.0-47.0) Mean Corpuscular Volume 94 FL (80-99) Mean Corpuscular Hemoglobin 31.0 PG (27.0-31.0) Mean Corpuscular Hemoglobin Concent 33.1 G/DL (32.0-36.0) Red Cell Distribution Width 15.4 % (11.6-14.8) H Platelet Count 190 K/UL (150-450) Mean Platelet Volume 8.1 FL (6.5-10.1) Neutrophils (%) (Auto) 55.7 % (45.0-75.0) Lymphocytes (%) (Auto) 31.4 % (20.0-45.0) Monocytes (%) (Auto) 10.0 % (1.0-10.0) Eosinophils (%) (Auto) 1.7 % (0.0-3.0) Basophils (%) (Auto) 1.2 % (0.0-2.0) Sodium Level 140 MMOL/L (136-145) Potassium Level 3.5 MMOL/L (3.5-5.1) Chloride Level 104 MMOL/L (98-107) Carbon Dioxide Level 29 MMOL/L (21-32) Anion Gap 7 mmol/L (5-15) Blood Urea Nitrogen 21 mg/dL (7-18) H Creatinine 1.5 MG/DL (0.55-1.30) H Estimat Glomerular Filtration Rate 33.9 mL/min (>60) Glucose Level 135 MG/DL (74-106) H Calcium Level 9.0 MG/DL (8.5-10.1) Total Bilirubin 0.4 MG/DL (0.2-1.0) Aspartate Amino Transf (AST/SGOT) 44 U/L (15-37) H Alanine Aminotransferase (ALT/SGPT) 13 U/L (12-78) Alkaline Phosphatase 92 U/L (46-116) Total Protein 7.0 G/DL (6.4-8.2) Albumin 2.3 G/DL (3.4-5.0) L Globulin 4.7 g/dL Albumin/Globulin Ratio 0.5 (1.0-2.7) L Prealbumin Pending Plan Problems: (1) Decubitus skin ulcer Assessment & Plan: Pt presented on admission with Obesity, Multiple Pressure Injuries.DTPI Medial/Posterior upper R thigh. Surrounding skin is erythematous. Non-Blanchable erythema Sacrum with scattered moist pink epithelial within base of wound. Full Thickness Pressure Injury L Buttocks(L)2.5cm x (W)1.2cm. Base of wound is moist ,disha ,25% slough noted. Edges are macerated. Small amt serosanguineous exudate noted.non-blanchable erythema periwound. Full Thickness Pressure Injury L Ischium. (L)2.5cm x (W)0.5cm x (D)0.2cm. Base of wound is disha with scattered slough within base of wound. Edges are adherent but macerated. Surrounding non-blanchable erythema without induration. R Heel is boggy with non-blanchable erythema. L Heel is boggy with Non-Blanchable erythema. Tx.Plan: Cleanse Wounds L Buttocks with Saline. Apply Therahoney. Apply Moisture Barrier periwound. Cover with Optifoam drsg Daily and prn. Cleanse wound L Ischium with Saline, Apply Therahoney. Apply Moisture Barrier Paste periwound. Cover with Optifoam drsg Daily and prn. Apply Moisture Barrier Paste to Sacrum. Cover with Optifoam drsg. Change every 3 days and prn. Apply Moisture Barrier Paste to medial/posterior upper R thigh . Cover with Optifoam drsg. Change every 7 days and prn. Reposition at least every 2hours or as tolerated. Off-load heels with Pillow. APM/KYRA Mattress overlay. 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 CURRENT DIET:NPO PO DIET RECOMMENDATIONS: Liberalized REGULAR w/ poor PO (texture per BELLSTAND ATTENDANT) + Glucerna TID w/ meals ENTERAL NUTRITION RECOMMENDATIONS: IF INDICATED -> Glucerna 1.5 @ 45ml/hr x 24 hrs + Prosource 1pkt QD to provide 1080ml, 1620kcal, 89+11g prot, 820ml free water * IF MEDICALLY INDICATED AND GI ACCESS OBTAINED -> rec initiate Glucerna 1.5 @ 15ml/hr x 6hrs, advance 10ml q 4-6 hrs as tolerated to goal rate -> HOB over 30 degrees/ water flush per MD -> add Prosource 1pkt QD to better meet increased protein needs ADDITIONAL RECOMMENDATIONS: * Calibrated bedscale wt * W/ oral diet - rec Calorie Count x 48 hrs * Rec appetite stimulant * Wound healing: add MVI w/ mineral x1, Vit C 500mg BID ZnSO4 220mg QD x 10 days Giancarlo BID w/ diet order * Monitor BGs for hypoglycemia while NPO (4) Episode of generalized weakness (5) Metastasis Assessment & Plan: diffuse chest wall mets hx breast ca remission no external lesion or breakdown chest wall fullness left side planned hospice diet Chest: There is extensive destruction of the manubrium. This appears to be associated with an ill-defined soft tissue opacity extending both deep and superficial to the manubrium, the boundaries of which are difficult to define given the absence of IV contrast appears to measure approximately 6.4 cm AP by 4 cm transverse by 5 cm craniocaudad. There is also destruction of the medial clavicles bilaterally. Mixed osteolytic osteosclerotic process is also seen involving the bilateral first and second ribs as well as the upper thoracic spine. Mixed osteolytic and osteoblastic process is also seen involving the body of the sternum. There is what appears to be a mostly healed pathologic fracture of the distal right clavicle. Numerous osteoblastic lesions are seen involving the cervical and thoracic spine, appearing to be mostly spared the lumbar spine with the possible exception of L1. There is questionably an osteoblastic process involving the intertrochanteric region of the right femur. No definite pelvic lesions are demonstrated. There is a large right pleural effusion. This results in compressive atelectasis of most of the right lower lobe as well as a significant portion of the right upper lobe. Some atelectasis and/or consolidation is also seen in the medial right middle lobe. There is also possibly some consolidation in the right upper lobe. There is a small to moderate left pleural effusion. This results in compressive atelectasis of a portion of the left lower lobe. Numerous linear opacities are seen elsewhere in the left lower lobe, as well as some nodular appearing consolidation. Numerous nodular subpleural opacities are seen in the upper and lower lobe on the left, as well as numerous intraparenchymal noncalcified nodules on the left. The heart size is normal. There is a small amount of pericardial fluid. There is also some soft tissue thickening within the pericardial fat adjacent to the anterior wall of the left lateral ventricle. There are prominent but not frankly enlarged mediastinal lymph nodes No axillary or chest wall mass or adenopathy is demonstrated. Surgical clips are seen in the left axilla and there is evidence of prior left mastectomy. Abdomen pelvis: The gallbladder is filled with high attenuation material. This may reflect contrast from a prior contrast study or milk of calcium bile. Lack of IV contrast limits assessment of the solid organs. A calcified granuloma is seen within the liver. No other focal liver lesions are demonstrated. The bile ducts are unremarkable. The pancreas is slightly atrophic. The spleen, adrenals, kidneys are unremarkable. No retroperitoneal or mesenteric mass or adenopathy. No pelvic mass or adenopathy. The uterus and ovaries are unremarkable. The rectum is distended with dense feces, measures up to 7 cm in diameter. There is mild rectal wall thickening as well as some thickening of the presacral fat. Lack of enteric contrast limits assessment of the remainder of the GI tract. Dense stool is seen elsewhere within the colon. No evidence of diverticulosis or diverticulitis. No small bowel distention. No free or loculated intraperitoneal gas or fluid is evident. The stomach and duodenum are unremarkable. The bones demonstrate degenerative spondylosis changes in addition to the findings previously reported IMPRESSION: Extensive destruction of the manubrium with associated soft tissue mass, as well as destructive changes involving the upper ribs, the medial clavicles, the body of the sternum, the upper thoracic spine. There are also osteoblastic lesions of the remainder of the thoracic spine. Suspect that this represents disseminated metastatic neoplasm, particularly in view of evidence of prior mastectomy. However, the relative localization to the upper axial skeleton and relative sparing of the lower axial skeleton is somewhat unusual, and a more localized inflammatory process or other process such as postradiation changes should also be considered. Healed pathologic fracture of the distal right clavicle Large right pleural effusion with resultant compressive atelectasis of much of the right lower lobe and upper lobe. Small to moderate left pleural effusion with resulting compressive atelectatic changes Numerous nodular subpleural opacities in the left upper and lower lobe as well as intraparenchymal noncalcified nodules in the left upper lobe. These could be neoplastic or postinflammatory or represent acute inflammation Small amount of pericardial fluid High attenuation material in the gallbladder, may reflect contrast from prior contrast study or milk of calcium bile Rectal distention with feces, could indicate rectal fecal impaction. Mild rectal wall thickening and thickening of the presacral fat. Indicate stercoral colitis. Other findings as noted, including old granulomatous disease within the liver the degenerative spondylosis. Zay Mares Apr 01, 2020 11:53
[2020-04-01 12:00] VITALS: BP 118/76
[2020-04-01] MEDS: Pantoprazole Inj IVP SCH ×2 (12:25→21:00)
[2020-04-01] MEDS: Aspirin EC 81mg tab ORAL SCH (12:25)
[2020-04-01] MEDS: Zinc Sulfate 220mg ORAL SCH (12:25)
[2020-04-01] MEDS: Ascorbic Acid 500mg tab ORAL SCH ×2 (12:25→18:29)
[2020-04-01] MEDS: D5 1/2NS 1,000 ML IV SCH (12:33)
[2020-04-01 16:00] VITALS: BP 123/64
--- NOTE | 2020-04-01 16:22 | General Progress Note ---
Subjective ROS Limited/Unobtainable: No Constitutional: Reports: malaise, weakness HEENT: Reports: no symptoms Cardiovascular: Reports: no symptoms Respiratory: Reports: cough Gastrointestinal/Abdominal: Reports: poor appetite Genitourinary: Reports: no symptoms Neurologic/Psychiatric: Reports: no symptoms Endocrine: Reports: no symptoms Hematologic/Lymphatic: Reports: no symptoms Allergies: Coded Allergies: No Known Allergies (Unverified , 03/29/20) All Systems: reviewed and negative except above Subjective no complaints. no chest pain or sob. no fevers or chills. poor po intake. ct reviewed. extensive metastatic disease Objective Last 24 Hour Vital Signs Date Time Temp Pulse Resp B/P (MAP) Pulse Ox O2 Delivery O2 Flow Rate FiO2 04/01/20 12:25 73 120/71 04/01/20 12:00 98.0 70 18 118/76 (90) 98 04/01/20 09:00 Nasal Cannula 2.0 04/01/20 08:00 98.4 73 17 120/71 (87) 97 04/01/20 04:00 98.3 86 17 119/49 (72) 95 04/01/20 00:00 98.2 90 20 145/82 (103) 94 03/31/20 21:24 98 132/76 03/31/20 21:00 Nasal Cannula 2.0 03/31/20 20:00 98.5 98 18 132/76 (94) 93 Intake and Output 03/31/20 04/01/20 19:00 07:00 Intake Total 225 ml 710.0 ml Output Total 300 ml Balance 225 ml 410.0 ml Intake Oral 150 ml IV Total 75 ml 710.0 ml Output Urine Total 300 ml Laboratory Tests 04/01/20 05:20: White Blood Count 8.2, Red Blood Count 4.11L, Hemoglobin 12.7, Hematocrit 38.4, Mean Corpuscular Volume 94, Mean Corpuscular Hemoglobin 31.0, Mean Corpuscular Hemoglobin Concent 33.1, Red Cell Distribution Width 15.4H, Platelet Count 190, Mean Platelet Volume 8.1, Neutrophils (%) (Auto) 55.7, Lymphocytes (%) (Auto) 31.4, Monocytes (%) (Auto) 10.0, Eosinophils (%) (Auto) 1.7, Basophils (%) (Auto) 1.2, Sodium Level 140, Potassium Level 3.5, Chloride Level 104, Carbon Dioxide Level 29, Anion Gap 7, Blood Urea Nitrogen 21H, Creatinine 1.5H, Estimat Glomerular Filtration Rate 33.9, Glucose Level 135H, Calcium Level 9.0, Total Bilirubin 0.4, Aspartate Amino Transf (AST/SGOT) 44H, Alanine Aminotransferase (ALT/SGPT) 13, Alkaline Phosphatase 92, Total Protein 7.0, Albumin 2.3L, Globulin 4.7, Albumin/Globulin Ratio 0.5L, Prealbumin [Pending] Height (Feet): 5 Height (Inches): 2.00 Weight (Pounds): 219 General Appearance: WD/WN, no apparent distress Neck: supple Cardiovascular: normal rate, regular rhythm Respiratory/Chest: chest wall non-tender, lungs clear, normal breath sounds Abdomen: normal bowel sounds, non tender, soft, no organomegaly Edema: no edema noted Arm (L), no edema noted Arm (R) Neurologic: upfitter II-XII grossly normal, alert, oriented x 3 Assessment/Plan Problem List: (1) Pneumonia ICD Codes: J18.9 - Pneumonia, unspecified organism SNOMED: 640318903 Qualifiers: Qualified Codes: J18.9 - Pneumonia, unspecified organism (2) FTT (failure to thrive) in adult ICD Codes: R62.7 - Adult failure to thrive SNOMED: 985341862 (3) Episode of generalized weakness ICD Codes: R53.1 - Weakness SNOMED: 11630863 (4) Metastasis ICD Codes: C79.9 - Secondary malignant neoplasm of unspecified site SNOMED: 035814824 (5) Decubitus skin ulcer ICD Codes: L89.90 - Pressure ulcer of unspecified site, unspecified stage SNOMED: 489187379 Status: stable Assessment/Plan: encourage pos ct chest abd pelvis reviewed repet covid pending possible GT if not eating- family requesting GI eval appreciated iv abx for pna BP rx left message with family awake call back ?dc on hospice [phone] son [phone]- dtr Dennis Barreto MD Apr 01, 2020 16:21
--- NOTE | 2020-04-01 17:51 | General Progress Note ---
Subjective Allergies: Coded Allergies: No Known Allergies (Unverified , 03/29/20) Subjective Above noted no new complaints Objective Last 24 Hour Vital Signs Date Time Temp Pulse Resp B/P (MAP) Pulse Ox O2 Delivery O2 Flow Rate FiO2 04/01/20 12:25 73 120/71 04/01/20 12:00 98.0 70 18 118/76 (90) 98 04/01/20 09:00 Nasal Cannula 2.0 04/01/20 08:00 98.4 73 17 120/71 (87) 97 04/01/20 04:00 98.3 86 17 119/49 (72) 95 04/01/20 00:00 98.2 90 20 145/82 (103) 94 03/31/20 21:24 98 132/76 03/31/20 21:00 Nasal Cannula 2.0 03/31/20 20:00 98.5 98 18 132/76 (94) 93 Intake and Output 03/31/20 04/01/20 19:00 07:00 Intake Total 225 ml 710.0 ml Output Total 300 ml Balance 225 ml 410.0 ml Intake Oral 150 ml IV Total 75 ml 710.0 ml Output Urine Total 300 ml Laboratory Tests 04/01/20 05:20: White Blood Count 8.2, Red Blood Count 4.11L, Hemoglobin 12.7, Hematocrit 38.4, Mean Corpuscular Volume 94, Mean Corpuscular Hemoglobin 31.0, Mean Corpuscular Hemoglobin Concent 33.1, Red Cell Distribution Width 15.4H, Platelet Count 190, Mean Platelet Volume 8.1, Neutrophils (%) (Auto) 55.7, Lymphocytes (%) (Auto) 31.4, Monocytes (%) (Auto) 10.0, Eosinophils (%) (Auto) 1.7, Basophils (%) (Auto) 1.2, Sodium Level 140, Potassium Level 3.5, Chloride Level 104, Carbon Dioxide Level 29, Anion Gap 7, Blood Urea Nitrogen 21H, Creatinine 1.5H, Estimat Glomerular Filtration Rate 33.9, Glucose Level 135H, Calcium Level 9.0, Total Bilirubin 0.4, Aspartate Amino Transf (AST/SGOT) 44H, Alanine Aminotransferase (ALT/SGPT) 13, Alkaline Phosphatase 92, Total Protein 7.0, Albumin 2.3L, Globulin 4.7, Albumin/Globulin Ratio 0.5L, Prealbumin [Pending] 04/01/20 17:26: POC Whole Blood Glucose 178H Height (Feet): 5 Height (Inches): 2.00 Weight (Pounds): 219 Objective Obese woman NCAT supple CTA RR abd soft, obese no edema Assessment/Plan Status: stable Assessment/Plan: Assessment - metastatic breast cancer - R>L pleural effusion - cancer cachexia - rectal stool impaction - poor prognosis Recommendations - Laxative - PPI - Reglan - Onc input - ? Thoracentesis - rec hospice care Jack Connolly MD Apr 01, 2020 17:51
[2020-04-01 20:00] VITALS: BP 112/74
[2020-04-02] VITALS: BP 134/68
[2020-04-02] MEDS: D5 1/2NS 1,000 ML IV SCH ×2 (00:40→13:20)
[2020-04-02] MEDS: Metoclopramide 10mg/2ml Inj IVP PRN ×2 (01:49→08:53)
[2020-04-02 04:00] VITALS: BP 118/64
[2020-04-02] MEDS: Piperacillin/Tazobactam 3.375 GM in NS 110 ML IVPB SCH ×3 (05:48→21:57)
[2020-04-02] MEDS: NovoLOG Insulin Flexpen SUBQ SCH ×4 (05:49→22:00)
[2020-04-02 08:00] VITALS: BP 154/68
[2020-04-02] MEDS: Pantoprazole Inj IVP SCH ×2 (08:53→21:57)
[2020-04-02] MEDS: Ascorbic Acid 500mg tab ORAL SCH ×2 (09:00→18:00)
[2020-04-02] MEDS: Zinc Sulfate 220mg ORAL SCH (09:00)
[2020-04-02] MEDS: Aspirin EC 81mg tab ORAL SCH (09:00)
[2020-04-02] MEDS: Morphine Sulfate 2mg/ml Inj(IV/IM USE ONLY) IVP PRN ×3 (09:18→22:01)
[2020-04-02 12:00] VITALS: BP 140/55
--- NOTE | 2020-04-02 12:09 | CDS Physician Query ---
Clarification is required for compliance, coding accuracy, and to reflect severity of illness for this patient Dear DR Dennis Barreto M.D.. Date: 04/02/2020 CDI/CDS Name: Meño aMckey Clinical Documentation Statement: "74-year-old female who was apparently brought in by family members because of poor p.o. intake. She apparently was hospitalized at an outside hospital, was offered a G-tube, but family declined. ." [ H& P Dennis Barreto M.D. 03/30/20] IMPRESSION AND PLAN: Failure to thrive, diabetes, hypoalbuminemia, agreed for the EGD and PEG placement. iv abx for pna, metastatic breast cancer, R>L pleural effusion, cancer cachexia. XR Chest, 1 View : Bilateral mid and lower lung ill-defined opacity could represent some component of atelectasis or consolidation. Medications: Azithromycin 500IV (03/30), Piperacillin IV (03/30-04/04) Please specify the underlying etiology: [] Gram +Positive Organism(s) [] Anaerobes [] Gram -Negative Organism(s) [x] Aspiration [] Pseudomonas [] Mycoplasma [] MRSA [] Not Applicable [] Other organism(s). Please specify: Present on Admission: [x] Yes [] No [] Clinically Undetermined Physician signature Date Please also document in your Progress Notes and/or Discharge Summary and indicate if the condition was present on admission. MTDD
--- NOTE | 2020-04-02 15:20 | Surgery Progress Note ---
Surgery Progress Note Subjective Additional Comments pulled out iv uncomfortable states cannot move much Objective Last 24 Hour Vital Signs Date Time Temp Pulse Resp B/P (MAP) Pulse Ox O2 Delivery O2 Flow Rate FiO2 04/02/20 12:00 97.5 85 19 140/55 (83) 97 04/02/20 09:48 97.9 04/02/20 09:00 88 154/68 04/02/20 08:00 97.9 88 18 154/68 (96) 97 04/02/20 04:00 98.3 86 20 118/64 (82) 93 04/02/20 00:00 98.6 86 20 134/68 (90) 96 04/01/20 21:00 83 137/68 04/01/20 21:00 Nasal Cannula 2.0 04/01/20 20:00 98.5 98 22 112/74 (87) 98 04/01/20 16:00 98.2 76 18 123/64 (83) 97 I&O Intake and Output 04/01/20 04/02/20 18:59 06:59 Intake Total 60 ml 830.0 ml Output Total 350 ml 1050 ml Balance -290 ml -220.0 ml Intake Oral 60 ml 120 ml IV Total 710.0 ml Output Urine Total 350 ml 1050 ml # Voids 3 # Bowel Movements 1 Dressing: saturated Cardiovascular: RSR Respiratory: decreased breath sounds Abdomen: non-tender, present bowel sounds Extremities: edema, no tenderness, no cyanosis Laboratory Tests Test 04/01/20 17:26 POC Whole Blood Glucose 178 MG/DL (74-106) H Plan Problems: (1) Decubitus skin ulcer Assessment & Plan: Pt presented on admission with Obesity, Multiple Pressure Injuries.DTPI Medial/Posterior upper R thigh. Surrounding skin is erythematous. Non-Blanchable erythema Sacrum with scattered moist pink epithelial within base of wound. Full Thickness Pressure Injury L Buttocks(L)2.5cm x (W)1.2cm. Base of wound is moist ,disha ,25% slough noted. Edges are macerated. Small amt serosanguineous exudate noted.non-blanchable erythema periwound. Full Thickness Pressure Injury L Ischium. (L)2.5cm x (W)0.5cm x (D)0.2cm. Base of wound is disha with scattered slough within base of wound. Edges are adherent but macerated. Surrounding non-blanchable erythema without induration. R Heel is boggy with non-blanchable erythema. L Heel is boggy with Non-Blanchable erythema. Tx.Plan: Cleanse Wounds L Buttocks with Saline. Apply Therahoney. Apply Moisture Barrier periwound. Cover with Optifoam drsg Daily and prn. Cleanse wound L Ischium with Saline, Apply Therahoney. Apply Moisture Barrier Paste periwound. Cover with Optifoam drsg Daily and prn. Apply Moisture Barrier Paste to Sacrum. Cover with Optifoam drsg. Change every 3 days and prn. Apply Moisture Barrier Paste to medial/posterior upper R thigh . Cover with Optifoam drsg. Change every 7 days and prn. Reposition at least every 2hours or as tolerated. Off-load heels with Pillow. APM/KYRA Mattress overlay. (2) Pneumonia (3) FTT (failure to thrive) in adult Assessment & Plan: DAILY ESTIMATED NEEDS: Needs based on Wound/ 62kg abw 25-30 kcals/kg 2786-8746 total kcals 1.5-2 g protein/kg 93-124 g total protein 25-30 mL/kg 2582-8983 total fluid mLs NUTRITION DIAGNOSIS: Increased protein and micronutrients needs R/T wound healing as evidenced by pt admitted w/ full thickness wounds @ lt buttock and lt ischium, and DTPI @ medial/posterior upper R thigh, admitted w/ FTT, currently NPO, awaiting THREAD WEAVER evaluation CURRENT DIET:NPO PO DIET RECOMMENDATIONS: Liberalized REGULAR w/ poor PO (texture per THREAD WEAVER) + Glucerna TID w/ meals ENTERAL NUTRITION RECOMMENDATIONS: IF INDICATED -> Glucerna 1.5 @ 45ml/hr x 24 hrs + Prosource 1pkt QD to provide 1080ml, 1620kcal, 89+11g prot, 820ml free water * IF MEDICALLY INDICATED AND GI ACCESS OBTAINED -> rec initiate Glucerna 1.5 @ 15ml/hr x 6hrs, advance 10ml q 4-6 hrs as tolerated to goal rate -> HOB over 30 degrees/ water flush per MD -> add Prosource 1pkt QD to better meet increased protein needs ADDITIONAL RECOMMENDATIONS: * Calibrated bedscale wt * W/ oral diet - rec Calorie Count x 48 hrs * Rec appetite stimulant * Wound healing: add MVI w/ mineral x1, Vit C 500mg BID ZnSO4 220mg QD x 10 days Giancarlo BID w/ diet order * Monitor BGs for hypoglycemia while NPO (4) Episode of generalized weakness (5) Metastasis Assessment & Plan: diffuse chest wall mets hx breast ca remission no external lesion or breakdown chest wall fullness left side planned hospice diet Chest: There is extensive destruction of the manubrium. This appears to be associated with an ill-defined soft tissue opacity extending both deep and superficial to the manubrium, the boundaries of which are difficult to define given the absence of IV contrast appears to measure approximately 6.4 cm AP by 4 cm transverse by 5 cm craniocaudad. There is also destruction of the medial clavicles bilaterally. Mixed osteolytic osteosclerotic process is also seen involving the bilateral first and second ribs as well as the upper thoracic spine. Mixed osteolytic and osteoblastic process is also seen involving the body of the sternum. There is what appears to be a mostly healed pathologic fracture of the distal right cl avicle. Numerous osteoblastic lesions are seen involving the cervical and thoracic spine, appearing to be mostly spared the lumbar spine with the possible exception of L1. There is questionably an osteoblastic process involving the intertrochanteric region of the right femur. No definite pelvic lesions are demonstrated. There is a large right pleural effusion. This results in compressive atelectasis of most of the right lower lobe as well as a significant portion of the right upper lobe. Some atelectasis and/or consolidation is also seen in the medial right middle lobe. There is also possibly some consolidation in the right upper lobe. There is a small to moderate left pleural effusion. This results in compressive atelectasis of a portion of the left lower lobe. Numerous linear opacities are seen elsewhere in the left lower lobe, as well as some nodular appearing consolidation. Numerous nodular subpleural opacities are seen in the upper and lower lobe on the left, as well as numerous intraparenchymal noncalcified nodules on the left. The heart size is normal. There is a small amount of pericardial fluid. There is also some soft tissue thickening within the pericardial fat adjacent to the anterior wall of the left lateral ventricle. There are prominent but not frankly enlarged mediastinal lymph nodes No axillary or chest wall mass or adenopathy is demonstrated. Surgical clips are seen in the left axilla and there is evidence of prior left mastectomy. Abdomen pelvis: The gallbladder is filled with high attenuation material. This may reflect contrast from a prior contrast study or milk of calcium bile. Lack of IV contrast limits assessment of the solid organs. A calcified granuloma is seen within the liver. No other focal liver lesions are demonstrated. The bile ducts are unremarkable. The pancreas is slightly atrophic. The spleen, adrenals, kidneys are unremarkable. No retroperitoneal or mesenteric mass or adenopathy. No pelvic mass or adenopathy. The uterus and ovaries are unremarkable. The rectum is distended with dense feces, measures up to 7 cm in diameter. There is mild rectal wall thickening as well as some thickening of the presacral fat. Lack of enteric contrast limits assessment of the remainder of the GI tract. Dense stool is seen elsewhere within the colon. No evidence of diverticulosis or diverticulitis. No small bowel distention. No free or loculated intraperitoneal gas or fluid is evident. The stomach and duodenum are unremarkable. The bones demonstrate degenerative spondylosis changes in addition to the findings previously reported IMPRESSION: Extensive destruction of the manubrium with associated soft tissue mass, as well as destructive changes involving the upper ribs, the medial clavicles, the body of the sternum, the upper thoracic spine. There are also osteoblastic lesions of the remainder of the thoracic spine. Suspect that this represents disseminated metastatic neoplasm, particularly in view of evidence of prior mastectomy. However, the relative localization to the upper axial skeleton and relative sparing of the lower axial skeleton is somewhat unusual, and a more localized inflammatory process or other process such as postradiation changes should also be considered. Healed pathologic fracture of the distal right clavicle Large right pleural effusion with resultant compressive atelectasis of much of the right lower lobe and upper lobe. Small to moderate left pleural effusion with resulting compressive atelectatic changes Numerous nodular subpleural opacities in the left upper and lower lobe as well as intraparenchymal noncalcified nodules in the left upper lobe. These could be neoplastic or postinflammatory or represent acute inflammation Small amount of pericardial fluid High attenuation material in the gallbladder, may reflect contrast from prior contrast study or milk of calcium bile Rectal distention with feces, could indicate rectal fecal impaction. Mild rectal wall thickening and thickening of the presacral fat. Indicate stercoral colitis. Other findings as noted, including old granulomatous disease within the liver the degenerative spondylosis. Zay Mares Apr 02, 2020 15:20
[2020-04-02 16:00] VITALS: BP 119/92
--- NOTE | 2020-04-02 17:15 | General Progress Note ---
Subjective ROS Limited/Unobtainable: No Constitutional: Reports: malaise, weakness HEENT: Reports: no symptoms Cardiovascular: Reports: no symptoms Respiratory: Reports: no symptoms Gastrointestinal/Abdominal: Reports: difficulty swallowing Genitourinary: Reports: no symptoms Neurologic/Psychiatric: Reports: no symptoms Endocrine: Reports: no symptoms Hematologic/Lymphatic: Reports: no symptoms Allergies: Coded Allergies: No Known Allergies (Unverified , 03/29/20) All Systems: reviewed and negative except above Subjective no complaints. no chest pain or sob. no fevers or chills. poor po intake. ct reviewed. extensive metastatic disease Objective Last 24 Hour Vital Signs Date Time Temp Pulse Resp B/P (MAP) Pulse Ox O2 Delivery O2 Flow Rate FiO2 04/02/20 15:04 97.5 04/02/20 12:00 97.5 85 19 140/55 (83) 97 04/02/20 09:48 97.9 04/02/20 09:00 88 154/68 04/02/20 08:00 97.9 88 18 154/68 (96) 97 04/02/20 04:00 98.3 86 20 118/64 (82) 93 04/02/20 00:00 98.6 86 20 134/68 (90) 96 04/01/20 21:00 83 137/68 04/01/20 21:00 Nasal Cannula 2.0 04/01/20 20:00 98.5 98 22 112/74 (87) 98 Intake and Output 04/01/20 04/02/20 19:00 07:00 Intake Total 135 ml 755.0 ml Output Total 350 ml 1050 ml Balance -215 ml -295.0 ml Intake Oral 60 ml 120 ml IV Total 75 ml 635.0 ml Output Urine Total 350 ml 1050 ml # Voids 3 # Bowel Movements 1 Laboratory Tests 04/01/20 17:26: POC Whole Blood Glucose 178H 04/02/20 16:34: POC Whole Blood Glucose 150H Height (Feet): 5 Height (Inches): 2.00 Weight (Pounds): 219 Assessment/Plan Problem List: (1) Pneumonia ICD Codes: J18.9 - Pneumonia, unspecified organism SNOMED: 954870787 Qualifiers: Qualified Codes: J18.9 - Pneumonia, unspecified organism (2) FTT (failure to thrive) in adult ICD Codes: R62.7 - Adult failure to thrive SNOMED: 385365533 (3) Episode of generalized weakness ICD Codes: R53.1 - Weakness SNOMED: 65052438 (4) Metastasis ICD Codes: C79.9 - Secondary malignant neoplasm of unspecified site SNOMED: 125183246 (5) Decubitus skin ulcer ICD Codes: L89.90 - Pressure ulcer of unspecified site, unspecified stage SNOMED: 632856262 Status: stable Assessment/Plan: Discussedwith dtr and pt. both want to proceed with G-tube. Continue current treatment. Usually only if symptomatic. 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 Dennis Barreto MD Apr 02, 2020 17:15
[2020-04-02 20:00] VITALS: BP 116/58
--- NOTE | 2020-04-02 23:25 | General Progress Note ---
Subjective Allergies: Coded Allergies: No Known Allergies (Unverified , 03/29/20) Subjective Above noted patient continues to be unable to eat d/w PMD who received request from family to have PEG placed d/w patient and daughter at length both adamantly want to have PEG placed both understand terminal dx of metastatic breast CA but both also believe the patient is not "end stage" and could look and feel better with enteral nutritional support daughter believes mother is still functional and should not from inability to eat Objective Last 24 Hour Vital Signs Date Time Temp Pulse Resp B/P (MAP) Pulse Ox O2 Delivery O2 Flow Rate FiO2 04/02/20 21:00 96 116/58 04/02/20 16:00 97.0 91 19 119/92 (101) 97 04/02/20 15:04 97.5 04/02/20 12:00 97.5 85 19 140/55 (83) 97 04/02/20 09:48 97.9 04/02/20 09:00 Nasal Cannula 2.0 04/02/20 09:00 88 154/68 04/02/20 08:00 97.9 88 18 154/68 (96) 97 04/02/20 04:00 98.3 86 20 118/64 (82) 93 04/02/20 00:00 98.6 86 20 134/68 (90) 96 Intake and Output 04/01/20 04/02/20 19:00 07:00 Intake Total 135 ml 755.0 ml Output Total 350 ml 1050 ml Balance -215 ml -295.0 ml Intake Oral 60 ml 120 ml IV Total 75 ml 635.0 ml Output Urine Total 350 ml 1050 ml # Voids 3 # Bowel Movements 1 Laboratory Tests 04/02/20 16:34: POC Whole Blood Glucose 150H 04/02/20 21:41: POC Whole Blood Glucose [Pending] Height (Feet): 5 Height (Inches): 2.00 Weight (Pounds): 219 Objective Obese woman NCAT supple CTA RR abd soft, obese no edema Assessment/Plan Status: stable Assessment/Plan: Assessment - metastatic breast cancer - R>L pleural effusion - cancer cachexia - rectal stool impaction - poor prognosis Recommendations - Laxative - PPI - Reglan - Onc input - ? Thoracentesis - PEG tomorrow per patient and family request Jack Connolly MD Apr 02, 2020 23:25
[2020-04-03] VITALS: BP 97/52
[2020-04-03 04:00] VITALS: BP 125/71
[2020-04-03] MEDS: D5 1/2NS 1,000 ML IV SCH (04:40)
[2020-04-03] MEDS: Piperacillin/Tazobactam 3.375 GM in NS 110 ML IVPB SCH ×3 (05:12→23:17)
[2020-04-03] MEDS: Morphine Sulfate 2mg/ml Inj(IV/IM USE ONLY) IVP PRN ×2 (05:14→09:24)
[2020-04-03] MEDS: NovoLOG Insulin Flexpen SUBQ SCH ×4 (05:23→23:23)
--- NOTE | 2020-04-03 07:54 | General Progress Note ---
Subjective ROS Limited/Unobtainable: No Constitutional: Reports: malaise, weakness HEENT: Reports: no symptoms Cardiovascular: Reports: no symptoms Respiratory: Reports: cough, shortness of breath Gastrointestinal/Abdominal: Reports: no symptoms Genitourinary: Reports: no symptoms Neurologic/Psychiatric: Reports: no symptoms Endocrine: Reports: no symptoms Hematologic/Lymphatic: Reports: no symptoms Allergies: Coded Allergies: No Known Allergies (Unverified , 03/29/20) All Systems: reviewed and negative except above Subjective ?more sob. ct noted- large right pleural effusion or sob. no fevers or chills. poor po intake. ct reviewed. extensive metastatic disease Objective Last 24 Hour Vital Signs Date Time Temp Pulse Resp B/P (MAP) Pulse Ox O2 Delivery O2 Flow Rate FiO2 04/03/20 00:00 98.0 90 20 97/52 (67) 92 04/02/20 21:00 96 116/58 04/02/20 21:00 Nasal Cannula 2.0 04/02/20 20:00 98.3 96 20 116/58 (77) 93 04/02/20 16:00 97.0 91 19 119/92 (101) 97 04/02/20 15:04 97.5 04/02/20 12:00 97.5 85 19 140/55 (83) 97 04/02/20 09:48 97.9 04/02/20 09:00 Nasal Cannula 2.0 04/02/20 09:00 88 154/68 04/02/20 08:00 97.9 88 18 154/68 (96) 97 Intake and Output 04/02/20 04/03/20 19:00 07:00 Intake Total 1010 ml Balance 1010 ml IV Total 1010 ml Laboratory Tests 04/02/20 16:34: POC Whole Blood Glucose 150H 04/02/20 21:41: POC Whole Blood Glucose [Pending] 04/03/20 05:19: POC Whole Blood Glucose 194H Height (Feet): 5 Height (Inches): 2.00 Weight (Pounds): 219 General Appearance: WD/WN, alert, confused Neck: supple Cardiovascular: normal rate, regular rhythm Respiratory/Chest: chest wall non-tender, decreased breath sounds Abdomen: normal bowel sounds, non tender, soft, no organomegaly Edema: no edema noted Pedal (L), no edema noted Pedal (R) Neurologic: instructional design manager II-XII grossly normal, alert, oriented x 3, responsive Assessment/Plan Problem List: (1) Pneumonia ICD Codes: J18.9 - Pneumonia, unspecified organism SNOMED: 224037203 Qualifiers: Qualified Codes: J18.9 - Pneumonia, unspecified organism (2) FTT (failure to thrive) in adult ICD Codes: R62.7 - Adult failure to thrive SNOMED: 381339937 (3) Episode of generalized weakness ICD Codes: R53.1 - Weakness SNOMED: 97364812 (4) Metastasis ICD Codes: C79.9 - Secondary malignant neoplasm of unspecified site SNOMED: 284720233 (5) Decubitus skin ulcer ICD Codes: L89.90 - Pressure ulcer of unspecified site, unspecified stage SNOMED: 904170626 Status: stable Assessment/Plan: Discussedwith dtr and pt. both want to proceed with G-tube. D/w who will schedule Continue current treatment. tap effusion pulm eval check Dennis Alcocer MD Apr 03, 2020 07:54
[2020-04-03 08:00] VITALS: BP 150/84
[2020-04-03] MEDS: Ascorbic Acid 500mg tab ORAL SCH ×2 (09:00→17:33)
[2020-04-03] MEDS: Zinc Sulfate 220mg ORAL SCH (09:00)
[2020-04-03 09:17] LABS: BASOPHILS % (AUTO) 1.2 % (0.0-2.0); EOSINOPHILS % (AUTO) 0.2 % (0.0-3.0); HEMATOCRIT 36.1 % (37.0-47.0); HEMOGLOBIN 12.1 G/DL (12.0-16.0); LYMPHOCYTES % (AUTO) 15.1 % (20.0-45.0); MEAN CORPUSCULAR VOLUME 95 FL (80-99); MONOCYTES % (AUTO) 8.8 % (1.0-10.0); NEUTROPHILS % (AUTO) 74.8 % (45.0-75.0); PLATELET COUNT 170 K/UL (150-450); RED BLOOD COUNT 3.81 M/UL (4.20-5.40); RED CELL DISTRIBUTION WIDTH 16.2 % (11.6-14.8)
[2020-04-03] MEDS: Metoclopramide 10mg/2ml Inj IVP PRN (09:25)
[2020-04-03] MEDS: Pantoprazole Inj IVP SCH ×2 (09:25→23:17)
[2020-04-03 09:48] LABS: ALBUMIN 1.9 G/DL (3.4-5.0); ALBUMIN/GLOBULIN RATIO 0.4 (1.0-2.7); BILIRUBIN,TOTAL 0.2 MG/DL (0.2-1.0); CREATININE 1.6 MG/DL (0.55-1.30)
[2020-04-03] MEDS ORDERED: ceFAZolin sod 1 GM in D5W 55 ML IVPB ONE (10:30)
[2020-04-03 12:00] VITALS: BP 120/60
--- NOTE | 2020-04-03 15:43 | Surgery Progress Note ---
Surgery Progress Note Subjective Additional Comments desaturating on NRB needs urgent right thora done at bedside. 1.5L removed by me see note Objective Last 24 Hour Vital Signs Date Time Temp Pulse Resp B/P (MAP) Pulse Ox O2 Delivery O2 Flow Rate FiO2 04/03/20 12:00 98.6 103 20 120/60 (80) 94 04/03/20 09:54 97.4 04/03/20 09:00 Nasal Cannula 3.0 04/03/20 09:00 93 150/84 04/03/20 08:00 97.4 93 19 150/84 (106) 92 04/03/20 04:00 98.0 111 20 125/71 (89) 92 04/03/20 00:00 98.0 90 20 97/52 (67) 92 04/02/20 21:00 96 116/58 04/02/20 21:00 Nasal Cannula 2.0 04/02/20 20:00 98.3 96 20 116/58 (77) 93 04/02/20 16:00 97.0 91 19 119/92 (101) 97 I&O Intake and Output 04/02/20 04/03/20 19:00 07:00 Intake Total 1010 ml 437.5 ml Output Total 725 ml Balance 1010 ml -287.5 ml IV Total 1010 ml 437.5 ml Output Urine Total 725 ml Cardiovascular: RSR Respiratory: decreased breath sounds Abdomen: non-tender, present bowel sounds Extremities: no edema, no tenderness, no cyanosis Laboratory Tests Test 04/02/20 16:34 04/02/20 21:41 04/03/20 05:19 04/03/20 08:45 POC Whole Blood Glucose 150 MG/DL (74-106) H Pending 194 MG/DL (74-106) H White Blood Count 8.0 K/UL (4.8-10.8) Red Blood Count 3.81 M/UL (4.20-5.40) L Hemoglobin 12.1 G/DL (12.0-16.0) Hematocrit 36.1 % (37.0-47.0) L Mean Corpuscular Volume 95 FL (80-99) Mean Corpuscular Hemoglobin 31.7 PG (27.0-31.0) H Mean Corpuscular Hemoglobin Concent 33.4 G/DL (32.0-36.0) Red Cell Distribution Width 16.2 % (11.6-14.8) H Platelet Count 170 K/UL (150-450) Mean Platelet Volume 8.0 FL (6.5-10.1) Neutrophils (%) (Auto) 74.8 % (45.0-75.0) Lymphocytes (%) (Auto) 15.1 % (20.0-45.0) L Monocytes (%) (Auto) 8.8 % (1.0-10.0) Eosinophils (%) (Auto) 0.2 % (0.0-3.0) Basophils (%) (Auto) 1.2 % (0.0-2.0) Sodium Level 144 MMOL/L (136-145) Potassium Level 3.0 MMOL/L (3.5-5.1) L Chloride Level 106 MMOL/L (98-107) Carbon Dioxide Level 26 MMOL/L (21-32) Anion Gap 12 mmol/L (5-15) Blood Urea Nitrogen 18 mg/dL (7-18) Creatinine 1.6 MG/DL (0.55-1.30) H Estimat Glomerular Filtration Rate 31.5 mL/min (>60) Glucose Level 171 MG/DL (74-106) H Calcium Level 8.0 MG/DL (8.5-10.1) L Total Bilirubin 0.2 MG/DL (0.2-1.0) Aspartate Amino Transf (AST/SGOT) 32 U/L (15-37) Alanine Aminotransferase (ALT/SGPT) 9 U/L (12-78) L Alkaline Phosphatase 88 U/L (46-116) Total Protein 6.5 G/DL (6.4-8.2) Albumin 1.9 G/DL (3.4-5.0) L Globulin 4.6 g/dL Albumin/Globulin Ratio 0.4 (1.0-2.7) L Test 04/03/20 12:44 POC Whole Blood Glucose 191 MG/DL (74-106) H Plan Problems: (1) Decubitus skin ulcer Assessment & Plan: Pt presented on admission with Obesity, Multiple Pressure Injuries.DTPI Medial/Posterior upper R thigh. Surrounding skin is erythematous. Non-Blanchable erythema Sacrum with scattered moist pink epithelial within base of wound. Full Thickness Pressure Injury L Buttocks(L)2.5cm x (W)1.2cm. Base of wound is moist ,disha ,25% slough noted. Edges are macerated. Small amt serosanguineous exudate noted.non-blanchable erythema periwound. Full Thickness Pressure Injury L Ischium. (L)2.5cm x (W)0.5cm x (D)0.2cm. Base of wound is disha with scattered slough within base of wound. Edges are adherent but macerated. Surrounding non-blanchable erythema without induration. R Heel is boggy with non-blanchable erythema. L Heel is boggy with Non-Blanchable erythema. Tx.Plan: Cleanse Wounds L Buttocks with Saline. Apply Therahoney. Apply Moisture Barrier periwound. Cover with Optifoam drsg Daily and prn. Cleanse wound L Ischium with Saline, Apply Therahoney. Apply Moisture Barrier Paste periwound. Cover with Optifoam drsg Daily and prn. Apply Moisture Barrier Paste to Sacrum. Cover with Optifoam drsg. Change every 3 days and prn. Apply Moisture Barrier Paste to medial/posterior upper R thigh . Cover with Optifoam drsg. Change every 7 days and prn. Reposition at least every 2hours or as tolerated. Off-load heels with Pillow. APM/KYRA Mattress overlay. (2) Pneumonia (3) FTT (failure to thrive) in adult Assessment & Plan: DAILY ESTIMATED NEEDS: Needs based on Wound/ 62kg abw 25-30 kcals/kg 6706-9874 total kcals 1.5-2 g protein/kg 93-124 g total protein 25-30 mL/kg 2039-3279 total fluid mLs NUTRITION DIAGNOSIS: Increased protein and micronutrients needs R/T wound healing as evidenced by pt admitted w/ full thickness wounds @ lt buttock and lt ischium, and DTPI @ medial/posterior upper R thigh, admitted w/ FTT, currently NPO, awaiting ECONOMICS ANALYST evaluation CURRENT DIET:NPO PO DIET RECOMMENDATIONS: Liberalized REGULAR w/ poor PO (texture per ECONOMICS ANALYST) + Glucerna TID w/ meals ENTERAL NUTRITION RECOMMENDATIONS: IF INDICATED -> Glucerna 1.5 @ 45ml/hr x 24 hrs + Prosource 1pkt QD to provide 1080ml, 1620kcal, 89+11g prot, 820ml free water * IF MEDICALLY INDICATED AND GI ACCESS OBTAINED -> rec initiate Glucerna 1.5 @ 15ml/hr x 6hrs, advance 10ml q 4-6 hrs as tolerated to goal rate -> HOB over 30 degrees/ water flush per MD -> add Prosource 1pkt QD to better meet increased protein needs ADDITIONAL RECOMMENDATIONS: * Calibrated bedscale wt * W/ oral diet - rec Calorie Count x 48 hrs * Rec appetite stimulant * Wound healing: add MVI w/ mineral x1, Vit C 500mg BID ZnSO4 220mg QD x 10 days Giancarlo BID w/ diet order * Monitor BGs for hypoglycemia while NPO (4) Episode of generalized weakness (5) Metastasis Assessment & Plan: diffuse chest wall mets hx breast ca remission no external lesion or breakdown chest wall fullness left side planned hospice diet possible right malignant effusion large desaturating thora done 1.5L out Chest: There is extensive destruction of the manubrium. This appears to be associated with an ill-defined soft tissue opacity extending both deep and superficial to the manubrium, the boundaries of which are difficult to define given the absence of IV contrast appears to measure approximately 6.4 cm AP by 4 cm transverse by 5 cm craniocaudad. There is also destruction of the medial clavicles bilaterally. Mixed osteolytic osteosclerotic process is also seen involving the bilateral first and second ribs as well as the upper thoracic spine. Mixed osteolytic and osteoblastic process is also seen involving the body of the sternum. There is what appears to be a mostly healed pathologic fracture of the distal right clavicle. Numerous osteoblastic lesions are seen involving the cervical and thoracic spine, appearing to be mostly spared the lumbar spine with the possible exception of L1. There is questionably an osteoblastic process involving the intertrochanteric region of the right femur. No definite pelvic lesions are demonstrated. There is a large right pleural effusion. This results in compressive atelectasis of most of the right lower lobe as well as a significant portion of the right upper lobe. Some atelectasis and/or consolidation is also seen in the medial right middle lobe. There is also possibly some consolidation in the right upper lobe. There is a small to moderate left pleural effusion. This results in compressive atelectasis of a portion of the left lower lobe. Numerous linear opacities are seen elsewhere in the left lower lobe, as well as some nodular appearing consolidation. Numerous nodular subpleural opacities are seen in the upper and lower lobe on the left, as well as numerous intraparenchymal noncalcified nodules on the left. The heart size is normal. There is a small amount of pericardial fluid. There is also some soft tissue thickening within the pericardial fat adjacent to the anterior wall of the left lateral ventricle. There are prominent but not frankly enlarged mediastinal lymph nodes No axillary or chest wall mass or adenopathy is demonstrated. Surgical clips are seen in the left axilla and there is evidence of prior left mastectomy. Abdomen pelvis: The gallbladder is filled with high attenuation material. This may reflect contrast from a prior contrast study or milk of calcium bile. Lack of IV contrast limits assessment of the solid organs. A calcified granuloma is seen within the liver. No other focal liver lesions are demonstrated. The bile ducts are unremarkable. The pancreas is slightly atrophic. The spleen, adrenals, kidneys are unremarkable. No retroperitoneal or mesenteric mass or adenopathy. No pelvic mass or adenopathy. The uterus and ovaries are unremarkable. The rectum is distended with dense feces, measures up to 7 cm in diameter. There is mild rectal wall thickening as well as some thickening of the presacral fat. Lack of enteric contrast limits assessment of the remainder of the GI tract. Dense stool is seen elsewhere within the colon. No evidence of diverticulosis or diverticulitis. No small bowel distention. No free or loculated intraperitoneal gas or fluid is evident. The stomach and duodenum are unremarkable. The bones demonstrate degenerative spondylosis changes in addition to the findings previously reported IMPRESSION: Extensive destruction of the manubrium with associated soft tissue mass, as well as destructive changes involving the upper ribs, the medial clavicles, the body of the sternum, the upper thoracic spine. There are also osteoblastic lesions of the remainder of the thoracic spine. Suspect that this represents disseminated metastatic neoplasm, particularly in view of evidence of prior mastectomy. However, the relative localization to the upper axial skeleton and relative sparing of the lower axial skeleton is somewhat unusual, and a more localized inflammatory process or other process such as postradiation changes should also be considered. Healed pathologic fracture of the distal right clavicle Large right pleural effusion with resultant compressive atelectasis of much of the right lower lobe and upper lobe. Small to moderate left pleural effusion with resulting compressive atelectatic changes Numerous nodular subpleural opacities in the left upper and lower lobe as well as intraparenchymal noncalcified nodules in the left upper lobe. These could be neoplastic or postinflammatory or represent acute inflammation Small amount of pericardial fluid High attenuation material in the gallbladder, may reflect contrast from prior contrast study or milk of calcium bile Rectal distention with feces, could indicate rectal fecal impaction. Mild rectal wall thickening and thickening of the presacral fat. Indicate stercoral colitis. Other findings as noted, including old granulomatous disease within the liver the degenerative spondylosis. Zay Mares Apr 03, 2020 15:43
--- NOTE | 2020-04-03 15:44 | Consultation ---
Consult Note Consult Note 74-year-old female brought in by family members because of poor p.o. intake. She apparently was hospitalized at an outside hospital. Family brought her in reportedly with concerns about poor p.o. intake and for possible hospice evaluation. Noted to have significant metastatic disease with large effusions PAST MEDICAL HISTORY: unknown PAST SURGICAL HISTORY: Unknown. CURRENT MEDICATIONS: Unknown. FAMILY HISTORY: Unknown. SOCIAL HISTORY: There is no known history of tobacco, ethanol, or drugs. lives with family REVIEW OF SYSTEMS: unable PHYSICAL EXAMINATION: chronically ill and confused GENERAL: well developed, in no apparent distress. HEART: Regular rate and rhythm. LUNGS: Clear. Patient appears to have a mastectomy on the left side. focally reduced ABDOMEN: Soft, nontender, nondistended. EXTREMITIES: No clubbing or cyanosis. reduced LOC LABORATORY DATA: Laboratory Tests 04/02/20 16:34: POC Whole Blood Glucose 150H 04/02/20 21:41: POC Whole Blood Glucose [Pending] 04/03/20 05:19: POC Whole Blood Glucose 194H 04/03/20 08:45: White Blood Count 8.0, Red Blood Count 3.81L, Hemoglobin 12.1, Hematocrit 36.1L, Mean Corpuscular Volume 95, Mean Corpuscular Hemoglobin 31.7H, Mean Corpuscular Hemoglobin Concent 33.4, Red Cell Distribution Width 16.2H, Platelet Count 170, Mean Platelet Volume 8.0, Neutrophils (%) (Auto) 74.8, Lymphocytes (%) (Auto) 15.1L, Monocytes (%) (Auto) 8.8, Eosinophils (%) (Auto) 0.2, Basophils (%) (Auto) 1.2, Sodium Level 144, Potassium Level 3.0L, Chloride Level 106, Carbon Dioxide Level 26, Anion Gap 12, Blood Urea Nitrogen 18, Creatinine 1.6H, Estimat Glomerular Filtration Rate 31.5, Glucose Level 171H, Calcium Level 8.0L, Total Bilirubin 0.2, Aspartate Amino Transf (AST/SGOT) 32, Alanine Aminotransferase (ALT/SGPT) 9L, Alkaline Phosphatase 88, Total Protein 6.5, Albumin 1.9L, Globulin 4.6, Albumin/Globulin Ratio 0.4L 04/03/20 12:44: POC Whole Blood Glucose 191H ASSESSMENT: pleural effusion, malignant PCM metastatic cancer toxic met encephalopathy PLAN tap effusion check cytology agree with plan monitor oxygen agree with hospice impression, plan, and exam edited and reviewed in detail care discussed with Jerome Chung MD Apr 03, 2020 15:44
--- NOTE | 2020-04-03 15:45 | Operative Note - PDOC ---
Operative Note Operative Note Date of Operation/Procedure: Apr 03, 2020 Pre-op Diagnosis: Large right pleural effusion respiratory insufficiency Procedure: Right thoracentesis Post-op Diagnosis: same as pre-op Surgeon: Zay Mares MD Anesthesia: local Specimen: yes Complications: none Condition: stable Estimated Blood Loss: minimal Drains: none Implant(s) used?: No Indications for Procedure 74-year-old female with metastatic disease history of breast cancer now large right pleural effusion causing lung collapse and significant respiratory insufficiency on nonrebreather thoracentesis indicated recommended consent obtained from family. Description of Procedure Right chest wall and axilla were prepped draped and sent surgical fashion. Anatomic landmarks identified. Local acetic infiltrated. Small skin incision was made. A finder needle was used and directed towards the intercostal space. And above the fifth rib margin it was gently introduced while aspirating into the pleural cavity and clearly identified serous fluid. The catheter was advanced over the needle and needle retracted. Once in it was placed to suction and proximally 1 5 L were evacuated. With negative pressure the catheter was removed and discarded. Dressings applied. Sample sent for cytology. A.m. chest x-ray ordered. Respiratory improved post procedure. Zay Mares Apr 03, 2020 15:45
[2020-04-03 16:00] VITALS: BP 127/67
--- NOTE | 2020-04-03 16:45 | Diagnostic Imaging Report ---
Indication: Shortness of breath Technique: One view of the chest Comparison: 03/30/2020 Findings: 6 hetero marked worsening of infiltrates versus edema in the left lung. Right lung infiltrates versus edema appears similar to the prior study. Bilateral axillary surgical clips are again demonstrated. Impression: Interval marked worsening of infiltrates on the left.
[2020-04-03] MEDS: D5 1/2NS w/KCl 30mEq 1000ml 1,000 ML IV SCH (17:36)
[2020-04-03 20:00] VITALS: BP 131/60
--- NOTE | 2020-04-03 22:06 | General Progress Note ---
Subjective Allergies: Coded Allergies: No Known Allergies (Unverified , 03/29/20) Subjective Above noted patient appears a bit SOB this am O2 Sat 87% On 2 liter Objective Last 24 Hour Vital Signs Date Time Temp Pulse Resp B/P (MAP) Pulse Ox O2 Delivery O2 Flow Rate FiO2 04/03/20 16:00 97.8 98 20 127/67 (87) 94 04/03/20 12:00 98.6 103 20 120/60 (80) 94 04/03/20 09:54 97.4 04/03/20 09:00 Nasal Cannula 3.0 04/03/20 09:00 93 150/84 04/03/20 08:00 97.4 93 19 150/84 (106) 92 04/03/20 04:00 98.0 111 20 125/71 (89) 92 04/03/20 00:00 98.0 90 20 97/52 (67) 92 Intake and Output 04/02/20 04/03/20 19:00 07:00 Intake Total 1010 ml 437.5 ml Output Total 725 ml Balance 1010 ml -287.5 ml IV Total 1010 ml 437.5 ml Output Urine Total 725 ml Laboratory Tests 04/03/20 05:19: POC Whole Blood Glucose 194H 04/03/20 08:45: White Blood Count 8.0, Red Blood Count 3.81L, Hemoglobin 12.1, Hematocrit 36.1L, Mean Corpuscular Volume 95, Mean Corpuscular Hemoglobin 31.7H, Mean Corpuscular Hemoglobin Concent 33.4, Red Cell Distribution Width 16.2H, Platelet Count 170, Mean Platelet Volume 8.0, Neutrophils (%) (Auto) 74.8, Lymphocytes (%) (Auto) 15.1L, Monocytes (%) (Auto) 8.8, Eosinophils (%) (Auto) 0.2, Basophils (%) (Auto) 1.2, Sodium Level 144, Potassium Level 3.0L, Chloride Level 106, Carbon Dioxide Level 26, Anion Gap 12, Blood Urea Nitrogen 18, Creatinine 1.6H, Estimat Glomerular Filtration Rate 31.5, Glucose Level 171H, Calcium Level 8.0L, Total Bilirubin 0.2, Aspartate Amino Transf (AST/SGOT) 32, Alanine Aminotransferase (ALT/SGPT) 9L, Alkaline Phosphatase 88, Total Protein 6.5, Albumin 1.9L, Globulin 4.6, Albumin/Globulin Ratio 0.4L 04/03/20 12:44: POC Whole Blood Glucose 191H 04/03/20 16:19: POC Whole Blood Glucose [Pending] 04/03/20 17:21: POC Whole Blood Glucose 196H 04/03/20 20:16: Arterial Blood pH 7.018*L, Arterial Blood Partial Pressure CO2 114.8*H, Arterial Blood Partial Pressure O2 74.0L, Arterial Blood HCO3 28.8H, Arterial Blood Oxygen Saturation 92.6L, Arterial Blood Base Excess -5.4L, Rich Test Positive 04/03/20 21:22: Arterial Blood pH 7.088*L, Arterial Blood Partial Pressure CO2 96.1*H, Arterial Blood Partial Pressure O2 139.5H, Arterial Blood HCO3 28.4H, Arterial Blood Oxygen Saturation 98.8, Arterial Blood Base Excess -4.0L, Rich Test Height (Feet): 5 Height (Inches): 5.00 Weight (Pounds): 219 Objective Obese woman NCAT supple CTA RR abd soft, obese no edema Assessment/Plan Status: stable Assessment/Plan: Assessment - metastatic breast cancer - R>L pleural effusion - cancer cachexia - rectal stool impaction - poor prognosis Recommendations - Laxative PRN - PPI - Reglan - Onc input - pulmonary w/u - PEG once optimized Jack Connolly MD Apr 03, 2020 22:06
[2020-04-04] VITALS: BP 110/51
[2020-04-04] MEDS: Morphine Sulfate 2mg/ml Inj(IV/IM USE ONLY) IVP PRN (03:41)
[2020-04-04 04:00] VITALS: BP 88/46
[2020-04-04] MEDS: Piperacillin/Tazobactam 3.375 GM in NS 110 ML IVPB SCH ×3 (06:15→21:21)
[2020-04-04] MEDS: D5 1/2NS w/KCl 30mEq 1000ml 1,000 ML IV SCH ×2 (06:15→20:16)
[2020-04-04] MEDS: NovoLOG Insulin Flexpen SUBQ SCH ×4 (06:16→21:00)
--- NOTE | 2020-04-04 07:48 | General Progress Note ---
Subjective ROS Limited/Unobtainable: No Constitutional: Reports: malaise, weakness HEENT: Reports: no symptoms Cardiovascular: Reports: no symptoms Respiratory: Reports: shortness of breath Gastrointestinal/Abdominal: Reports: no symptoms Genitourinary: Reports: no symptoms Neurologic/Psychiatric: Reports: no symptoms Endocrine: Reports: no symptoms Hematologic/Lymphatic: Reports: no symptoms Allergies: Coded Allergies: No Known Allergies (Unverified , 03/29/20) All Systems: reviewed and negative except above Subjective worsening sob. on bipap for resp acidosis. family agrees to dnr and comfort care Objective Last 24 Hour Vital Signs Date Time Temp Pulse Resp B/P (MAP) Pulse Ox O2 Delivery O2 Flow Rate FiO2 04/04/20 04:00 97.3 81 24 88/46 (60) 96 04/04/20 03:29 85 16 96 80 04/04/20 00:00 97.9 76 20 110/51 (70) 95 04/03/20 23:05 75 13 95 80 04/03/20 21:00 Bi-pap 04/03/20 20:40 85 18 99 100 04/03/20 20:40 85 18 99 Bi-Pap 100 04/03/20 20:00 98.9 93 24 131/60 (83) 95 04/03/20 16:00 97.8 98 20 127/67 (87) 94 04/03/20 12:00 98.6 103 20 120/60 (80) 94 04/03/20 09:54 97.4 04/03/20 09:00 Nasal Cannula 3.0 04/03/20 09:00 93 150/84 04/03/20 08:00 97.4 93 19 150/84 (106) 92 Intake and Output 04/03/20 04/04/20 19:00 07:00 Intake Total 1342.5 ml 860.0 ml Output Total 700 ml Balance 1342.5 ml 160.0 ml IV Total 1142.5 ml 860.0 ml Other 200 ml Output Urine Total 700 ml # Voids 1 Laboratory Tests 04/03/20 08:45: White Blood Count 8.0, Red Blood Count 3.81L, Hemoglobin 12.1, Hematocrit 36.1L, Mean Corpuscular Volume 95, Mean Corpuscular Hemoglobin 31.7H, Mean Corpuscular Hemoglobin Concent 33.4, Red Cell Distribution Width 16.2H, Platelet Count 170, Mean Platelet Volume 8.0, Neutrophils (%) (Auto) 74.8, Lymphocytes (%) (Auto) 15.1L, Monocytes (%) (Auto) 8.8, Eosinophils (%) (Auto) 0.2, Basophils (%) (Auto) 1.2, Sodium Level 144, Potassium Level 3.0L, Chloride Level 106, Carbon Dioxide Level 26, Anion Gap 12, Blood Urea Nitrogen 18, Creatinine 1.6H, Estimat Glomerular Filtration Rate 31.5, Glucose Level 171H, Calcium Level 8.0L, Total Bilirubin 0.2, Aspartate Amino Transf (AST/SGOT) 32, Alanine Aminotransferase (ALT/SGPT) 9L, Alkaline Phosphatase 88, Total Protein 6.5, Albumin 1.9L, Globulin 4.6, Albumin/Globulin Ratio 0.4L 04/03/20 12:44: POC Whole Blood Glucose 191H 04/03/20 16:19: POC Whole Blood Glucose [Pending] 04/03/20 17:21: POC Whole Blood Glucose 196H 04/03/20 20:16: Arterial Blood pH 7.018*L, Arterial Blood Partial Pressure CO2 114.8*H, Arterial Blood Partial Pressure O2 74.0L, Arterial Blood HCO3 28.8H, Arterial Blood Oxy gen Saturation 92.6L, Arterial Blood Base Excess -5.4L, Rich Test Positive 04/03/20 21:22: Arterial Blood pH 7.088*L, Arterial Blood Partial Pressure CO2 96.1*H, Arterial Blood Partial Pressure O2 139.5H, Arterial Blood HCO3 28.4H, Arterial Blood Oxygen Saturation 98.8, Arterial Blood Base Excess -4.0L, Rich Test 04/03/20 23:22: POC Whole Blood Glucose 179H Height (Feet): 5 Height (Inches): 5.00 Weight (Pounds): 219 General Appearance: WD/WN, lethargic, confused Neck: supple Cardiovascular: regular rhythm Respiratory/Chest: chest wall non-tender, lungs clear, normal breath sounds, respiratory distress Edema: mild edema Neurologic: alert, disoriented Skin: normal pigmentation Assessment/Plan Problem List: (1) Pneumonia ICD Codes: J18.9 - Pneumonia, unspecified organism SNOMED: 418302938 Qualifiers: Qualified Codes: J18.9 - Pneumonia, unspecified organism (2) FTT (failure to thrive) in adult ICD Codes: R62.7 - Adult failure to thrive SNOMED: 343412260 (3) Episode of generalized weakness ICD Codes: R53.1 - Weakness SNOMED: 45197560 (4) Metastasis ICD Codes: C79.9 - Secondary malignant neoplasm of unspecified site SNOMED: 757791919 (5) Decubitus skin ulcer ICD Codes: L89.90 - Pressure ulcer of unspecified site, unspecified stage SNOMED: 095584155 Status: stable Assessment/Plan: dnr comfort care pt wants to go home to case management and social sciences instructor to assist possible dc if hospice and bipap can be arrange Dennis Barreto MD Apr 04, 2020 07:48
[2020-04-04 08:00] VITALS: BP 81/41
[2020-04-04] MEDS: Pantoprazole Inj IVP SCH ×3 (09:00→21:13)
[2020-04-04] MEDS: Ascorbic Acid 500mg tab ORAL SCH ×2 (09:00→17:29)
[2020-04-04] MEDS: Zinc Sulfate 220mg ORAL SCH (09:00)
[2020-04-04 09:26] LABS: INR 1.1 (0.9-1.1)
[2020-04-04 09:33] LABS: ALBUMIN 1.8 G/DL (3.4-5.0); ALBUMIN/GLOBULIN RATIO 0.4 (1.0-2.7); BILIRUBIN,TOTAL 0.3 MG/DL (0.2-1.0); CALCIUM 8.6 MG/DL (8.5-10.1); CREATININE 2.3 MG/DL (0.55-1.30); POTASSIUM 4.3 MMOL/L (3.5-5.1)
[2020-04-04 12:00] VITALS: BP 76/45
--- NOTE | 2020-04-04 12:32 | Pulmonology Progress Note ---
Subjective ROS Limited/Unobtainable: No Allergies: Coded Allergies: No Known Allergies (Unverified , 03/29/20) All Systems: reviewed and negative except above Subjective care noted doing poorly hypotensive on BIPAP Objective Last 24 Hour Vital Signs Date Time Temp Pulse Resp B/P (MAP) Pulse Ox O2 Delivery O2 Flow Rate FiO2 04/04/20 12:00 98.3 86 16 76/45 (55) 93 04/04/20 11:35 88 12 92 80 04/04/20 09:00 Bi-pap 04/04/20 08:00 98.1 85 20 81/41 (54) 97 04/04/20 07:47 94 12 97 80 04/04/20 04:00 97.3 81 24 88/46 (60) 96 04/04/20 03:29 85 16 96 80 04/04/20 00:00 97.9 76 20 110/51 (70) 95 04/03/20 23:05 75 13 95 80 04/03/20 21:00 Bi-pap 04/03/20 20:40 85 18 99 100 04/03/20 20:40 85 18 99 Bi-Pap 100 04/03/20 20:00 98.9 93 24 131/60 (83) 95 04/03/20 16:00 97.8 98 20 127/67 (87) 94 Intake and Output 04/03/20 04/04/20 19:00 07:00 Intake Total 1342.5 ml 860.0 ml Output Total 700 ml Balance 1342.5 ml 160.0 ml IV Total 1142.5 ml 860.0 ml Other 200 ml Output Urine Total 700 ml # Voids 1 Objective WDWN chronically ill on BIPAP reduced breath sounds bilaterally with noted rhonchi [id number] NABS nontender no CC edema reduced LOC Laboratory Tests 04/03/20 12:44: POC Whole Blood Glucose 191H 04/03/20 16:19: POC Whole Blood Glucose [Pending] 04/03/20 17:21: POC Whole Blood Glucose 196H 04/03/20 20:16: Arterial Blood pH 7.018*L, Arterial Blood Partial Pressure CO2 114.8*H, Arterial Blood Partial Pressure O2 74.0L, Arterial Blood HCO3 28.8H, Arterial Blood Oxygen Saturation 92.6L, Arterial Blood Base Excess -5.4L, Rich Test Positive 04/03/20 21:22: Arterial Blood pH 7.088*L, Arterial Blood Partial Pressure CO2 96.1*H, Arterial Blood Partial Pressure O2 139.5H, Arterial Blood HCO3 28.4H, Arterial Blood Oxygen Saturation 98.8, Arterial Blood Base Excess -4.0L, Rich Test 04/03/20 23:22: POC Whole Blood Glucose 179H 04/04/20 09:00: Prothrombin Time 12.1H, Prothromb Time International Ratio 1.1, Activated Partial Thromboplast Time 25, Sodium Level 141, Potassium Level 4.3, Chloride Level 107, Carbon Dioxide Level 29, Anion Gap 6, Blood Urea Nitrogen 20H, Creatinine 2.3H, Estimat Glomerular Filtration Rate 20.7, Glucose Level 194H, Calcium Level 8.6, Total Bilirubin 0.3, Aspartate Amino Transf (AST/SGOT) 31, Alanine Aminotransferase (ALT/SGPT) 11L, Alkaline Phosphatase 92, Total Protein 6.1L, Albumin 1.8L, Globulin 4.3, Albumin/Globulin Ratio 0.4L 04/04/20 12:23: POC Whole Blood Glucose [Pending] Current Medications Medications (Trade) Dose Ordered Sig/Chloe Route PRN Reason Start Time Stop Time Status Last Admin Dose Admin Acetaminophen (Tylenol) 650 mg Q4H PRN ORAL Mild Pain (Pain Scale 1-3) 03/31/20 05:45 04/30/20 05:44 04/02/20 01:15 Ascorbic Acid (Vitamin C) 500 mg TWICE A DAY ORAL 03/31/20 18:00 04/30/20 17:59 04/01/20 18:29 Dextrose (Dextrose 50%) 25 ml Q30M PRN IV Hypoglycemia 03/30/20 08:45 06/28/20 08:44 Dextrose (Dextrose 50%) 50 ml Q30M PRN IV Hypoglycemia 03/30/20 08:45 06/28/20 08:44 Dextrose/ Electrolytes 1,000 ml @ 75 mls/hr [id number] IV 04/03/20 18:00 05/03/20 17:59 04/04/20 06:15 Hydralazine HCl (Apresoline) 25 mg Q6H PRN ORAL For High Blood Pressure 03/31/20 09:15 06/29/20 09:14 Insulin Aspart (NovoLOG) BEFORE MEALS AND HS SUBQ 03/30/20 11:30 06/28/20 11:29 04/04/20 06:16 Metoclopramide HCl (Reglan) 5 mg Q6H PRN IVP Nausea & Vomiting 03/31/20 20:00 04/30/20 19:59 04/03/20 09:25 Metoprolol Tartrate (Lopressor) 25 mg Q12HR ORAL 03/31/20 09:15 06/29/20 09:14 04/01/20 21:00 Morphine Sulfate (Morphine Sulfate) 1 mg Q4H PRN IVP pain 4-10 04/02/20 09:15 04/09/20 09:14 04/04/20 03:41 Multivitamins (Multivitamins) 1 tab DAILY ORAL 04/01/20 09:00 05/01/20 08:59 04/01/20 12:26 Pantoprazole (Protonix) 40 mg EVERY 12 HOURS IVP 03/31/20 21:00 04/30/20 20:59 04/03/20 23:17 Piperacillin Sod/ Tazobactam Sod 3.375 gm/Sodium Chloride 110 ml @ 27.5 mls/hr EVERY 8 HOURS IVPB 03/30/20 14:00 04/08/20 13:59 04/04/20 06:15 Zinc Sulfate (Zinc Sulfate) 220 mg DAILY ORAL 04/01/20 09:00 04/11/20 08:59 04/01/20 12:25 Assessment/Plan Assessment/Plan ASSESSMENT: pleural effusion, malignant PCM metastatic cancer toxic met encephalopathy acute respiratory failure PLAN agree with plan monitor oxygen ? dc BIPAP agree with hospice impression, plan, and exam edited and reviewed in detail care discussed with Jerome Chung MD Apr 04, 2020 12:32
--- NOTE | 2020-04-04 12:50 | Surgery Progress Note ---
Surgery Progress Note Subjective Procedure Performed Right thoracentesis Additional Comments infiltrates worsening respiratory worse thora yesterday with 1.5L out not improving dnr/dni comfort care hospice Objective Last 24 Hour Vital Signs Date Time Temp Pulse Resp B/P (MAP) Pulse Ox O2 Delivery O2 Flow Rate FiO2 04/04/20 12:00 98.3 86 16 76/45 (55) 93 04/04/20 11:35 88 12 92 80 04/04/20 09:00 Bi-pap 04/04/20 08:00 98.1 85 20 81/41 (54) 97 04/04/20 07:47 94 12 97 80 04/04/20 04:00 97.3 81 24 88/46 (60) 96 04/04/20 03:29 85 16 96 80 04/04/20 00:00 97.9 76 20 110/51 (70) 95 04/03/20 23:05 75 13 95 80 04/03/20 21:00 Bi-pap 04/03/20 20:40 85 18 99 100 04/03/20 20:40 85 18 99 Bi-Pap 100 04/03/20 20:00 98.9 93 24 131/60 (83) 95 04/03/20 16:00 97.8 98 20 127/67 (87) 94 I&O Intake and Output 04/03/20 04/04/20 19:00 07:00 Intake Total 1342.5 ml 860.0 ml Output Total 700 ml Balance 1342.5 ml 160.0 ml IV Total 1142.5 ml 860.0 ml Other 200 ml Output Urine Total 700 ml # Voids 1 Dressing: saturated Cardiovascular: RSR Respiratory: decreased breath sounds Abdomen: non-tender, present bowel sounds Extremities: edema, no tenderness, no cyanosis Laboratory Tests Test 04/03/20 16:19 04/03/20 17:21 04/03/20 20:16 04/03/20 21:22 POC Whole Blood Glucose Pending 196 MG/DL (74-106) H Arterial Blood pH 7.018 (7.350-7.450) 7.088 (7.350-7.450) Arterial Blood Partial Pressure CO2 114.8 mmHg (35.0-45.0) *H 96.1 mmHg (35.0-45.0) *H Arterial Blood Partial Pressure O2 74.0 mmHg (75.0-100.0) L 139.5 mmHg (75.0-100.0) H Arterial Blood HCO3 28.8 mmol/L (22.0-26.0) H 28.4 mmol/L (22.0-26.0) H Arterial Blood Oxygen Saturation 92.6 % (95-100) L 98.8 % (95-100) Arterial Blood Base Excess -5.4 (-2-2) L -4.0 (-2-2) L Rich Test Positive Test 04/03/20 23:22 04/04/20 09:00 04/04/20 12:23 POC Whole Blood Glucose 179 MG/DL (74-106) H Pending Prothrombin Time 12.1 SEC (9.30-11.50) H Prothromb Time International Ratio 1.1 (0.9-1.1) Activated Partial Thromboplast Time 25 SEC (23-33) Sodium Level 141 MMOL/L (136-145) Potassium Level 4.3 MMOL/L (3.5-5.1) Chloride Level 107 MMOL/L (98-107) Carbon Dioxide Level 29 MMOL/L (21-32) Anion Gap 6 mmol/L (5-15) Blood Urea Nitrogen 20 mg/dL (7-18) H Creatinine 2.3 MG/DL (0.55-1.30) H Estimat Glomerular Filtration Rate 20.7 mL/min (>60) Glucose Level 194 MG/DL (74-106) H Calcium Level 8.6 MG/DL (8.5-10.1) Total Bilirubin 0.3 MG/DL (0.2-1.0) Aspartate Amino Transf (AST/SGOT) 31 U/L (15-37) Alanine Aminotransferase (ALT/SGPT) 11 U/L (12-78) L Alkaline Phosphatase 92 U/L (46-116) Total Protein 6.1 G/DL (6.4-8.2) L Albumin 1.8 G/DL (3.4-5.0) L Globulin 4.3 g/dL Albumin/Globulin Ratio 0.4 (1.0-2.7) L Plan Problems: (1) Decubitus skin ulcer Assessment & Plan: Pt presented on admission with Obesity, Multiple Pressure Injuries.DTPI Medial/Posterior upper R thigh. Surrounding skin is erythematous. Non-Blanchable erythema Sacrum with scattered moist pink epithelial within base of wound. Full Thickness Pressure Injury L Buttocks(L)2.5cm x (W)1.2cm. Base of wound is moist ,disha ,25% slough noted. Edges are macerated. Small amt serosanguineous exudate noted.non-blanchable erythema periwound. Full Thickness Pressure Injury L Ischium. (L)2.5cm x (W)0.5cm x (D)0.2cm. Base of wound is disha with scattered slough within base of wound. Edges are adherent but macerated. Surrounding non-blanchable erythema without induration. R Heel is boggy with non-blanchable erythema. L Heel is boggy with Non-Blanchable erythema. Tx.Plan: Cleanse Wounds L Buttocks with Saline. Apply Therahoney. Apply Moisture Barrier periwound. Cover with Optifoam drsg Daily and prn. Cleanse wound L Ischium with Saline, Apply Therahoney. Apply Moisture Barrier Paste periwound. Cover with Optifoam drsg Daily and prn. Apply Moisture Barrier Paste to Sacrum. Cover with Optifoam drsg. Change every 3 days and prn. Apply Moisture Barrier Paste to medial/posterior upper R thigh . Cover with Optifoam drsg. Change every 7 days and prn. Reposition at least every 2hours or as tolerated. Off-load heels with Pillow. APM/KYRA Mattress overlay. (2) Pneumonia (3) FTT (failure to thrive) in adult Assessment & Plan: DAILY ESTIMATED NEEDS: Needs based on Wound/ 62kg abw 25-30 kcals/kg [id number] total kcals 1.5-2 g protein/kg 93-124 g total protein 25-30 mL/kg 0954-0683 total fluid mLs NUTRITION DIAGNOSIS: Increased protein and micronutrients needs R/T wound healing as evidenced by pt admitted w/ full thickness wounds @ lt buttock and lt ischium, and DTPI @ medial/posterior upper R thigh, admitted w/ FTT, currently NPO, awaiting [employer] evaluation CURRENT DIET:NPO PO DIET RECOMMENDATIONS: Liberalized REGULAR w/ poor PO (texture per [employer]) + Glucerna TID w/ meals ENTERAL NUTRITION RECOMMENDATIONS: IF INDICATED -> Glucerna 1.5 @ 45ml/hr x 24 hrs + Prosource 1pkt QD to provide 1080ml, 1620kcal, 89+11g prot, 820ml free water * IF MEDICALLY INDICATED AND GI ACCESS OBTAINED -> rec initiate Glucerna 1.5 @ 15ml/hr x 6hrs, advance 10ml q 4-6 hrs as tolera penny to goal rate -> HOB over 30 degrees/ water flush per MD -> add Prosource 1pkt QD to better meet increased protein needs ADDITIONAL RECOMMENDATIONS: * Calibrated bedscale wt * W/ oral diet - rec Calorie Count x 48 hrs * Rec appetite stimulant * Wound healing: add MVI w/ mineral x1, Vit C 500mg BID ZnSO4 220mg QD x 10 days Giancarlo BID w/ diet order * Monitor BGs for hypoglycemia while NPO (4) Episode of generalized weakness (5) Metastasis Assessment & Plan: diffuse chest wall mets hx breast ca remission no external lesion or breakdown chest wall fullness left side planned hospice diet possible right malignant effusion large desaturating thora done 1.5L out Chest: There is extensive destruction of the manubrium. This appears to be associated with an ill-defined soft tissue opacity extending both deep and superficial to the manubrium, the boundaries of which are difficult to define given the absence of IV contrast appears to measure approximately 6.4 cm AP by 4 cm transverse by 5 cm craniocaudad. There is also destruction of the medial clavicles bilaterally. Mixed osteolytic osteosclerotic process is also seen involving the bilateral first and second ribs as well as the upper thoracic spine. Mixed osteolytic and osteoblastic process is also seen involving the body of the sternum. There is what appears to be a mostly healed pathologic fracture of the distal right clavicle. Numerous osteoblastic lesions are seen involving the cervical and thoracic spine, appearing to be mostly spared the lumbar spine with the possible exception of L1. There is questionably an osteoblastic process involving the intertrochanteric region of the right femur. No definite pelvic lesions are demonstrated. There is a large right pleural effusion. This results in compressive atelectasis of most of the right lower lobe as well as a significant portion of the right upper lobe. Some atelectasis and/or consolidation is also seen in the medial right middle lobe. There is also possibly some consolidation in the right upper lobe. There is a small to moderate left pleural effusion. This results in compressive atelectasis of a portion of the left lower lobe. Numerous linear opacities are seen elsewhere in the left lower lobe, as well as some nodular appearing consolidation. Numerous nodular subpleural opacities are seen in the upper and lower lobe on the left, as well as numerous intraparenchymal noncalcified nodules on the left. The heart size is normal. There is a small amount of pericardial fluid. There is also some soft tissue thickening within the pericardial fat adjacent to the anterior wall of the left lateral ventricle. There are prominent but not frankly enlarged mediastinal lymph nodes No axillary or chest wall mass or adenopathy is demonstrated. Surgical clips are seen in the left axilla and there is evidence of prior left mastectomy. Abdomen pelvis: The gallbladder is filled with high attenuation material. This may reflect contrast from a prior contrast study or milk of calcium bile. Lack of IV contrast limits assessment of the solid organs. A calcified granuloma is seen within the liver. No other focal liver lesions are demonstrated. The bile ducts are unremarkable. The pancreas is slightly atrophic. The spleen, adrenals, kidneys are unremarkable. No retroperitoneal or mesenteric mass or adenopathy. No pelvic mass or adenopathy. The uterus and ovaries are unremarkable. The rectum is distended with dense feces, measures up to 7 cm in diameter. There is mild rectal wall thickening as well as some thickening of the presacral fat. Lack of enteric contrast limits assessment of the remainder of the GI tract. Dense stool is seen elsewhere within the colon. No evidence of diverticulosis or diverticulitis. No small bowel distention. No free or loculated intraperitoneal gas or fluid is evident. The stomach and duodenum are unremarkable. The bones demonstrate degenerative spondylosis changes in addition to the findings previously reported IMPRESSION: Extensive destruction of the manubrium with associated soft tissue mass, as well as destructive changes involving the upper ribs, the medial clavicles, the body of the sternum, the upper thoracic spine. There are also osteoblastic lesions of the remainder of the thoracic spine. Suspect that this represents disseminated metastatic neoplasm, particularly in view of evidence of prior mastectomy. However, the relative localization to the upper axial skeleton and relative sparing of the lower axial skeleton is somewhat unusual, and a more localized inflammatory process or other process such as postradiation changes should also be considered. Healed pathologic fracture of the distal right clavicle Large right pleural effusion with resultant compressive atelectasis of much of the right lower lobe and upper lobe. Small to moderate left pleural effusion with resulting compressive atelectatic changes Numerous nodular subpleural opacities in the left upper and lower lobe as well as intraparenchymal noncalcified nodules in the left upper lobe. These could be neoplastic or postinflammatory or represent acute inflammation Small amount of pericardial fluid High attenuation material in the gallbladder, may reflect contrast from prior contrast study or milk of calcium bile Rectal distention with feces, could indicate rectal fecal impaction. Mild rectal wall thickening and thickening of the presacral fat. Indicate stercoral colitis. Other findings as noted, including old granulomatous disease within the liver the degenerative spondylosis. Zay Mares Apr 04, 2020 12:50
--- NOTE | 2020-04-04 15:30 | Diagnostic Imaging Report ---
Indication: Shortness of breath Technique: One view of the chest Comparison: , 2019 Findings: The current exam is less heavily exposed. Heart remains markedly enlarged. Allowing for technical differences, bilateral infiltrates versus edema are probably unchanged. There is suggestion of decreased pleural fluid on the left. Impression: Possibly decreased left pleural effusion. Otherwise little change lead one day
[2020-04-04 16:00] VITALS: BP 78/47
[2020-04-04 20:00] VITALS: BP 99/65
--- NOTE | 2020-04-04 21:58 | General Progress Note ---
Subjective Allergies: Coded Allergies: No Known Allergies (Unverified , 03/29/20) Subjective Above noted patient appears worse today more SOB on BIPAP d/w family at bedside now opting for comfort care Objective Last 24 Hour Vital Signs Date Time Temp Pulse Resp B/P (MAP) Pulse Ox O2 Delivery O2 Flow Rate FiO2 04/04/20 21:24 Bi-pap 04/04/20 21:00 99 80/65 04/04/20 20:00 97.8 87 22 99/65 (76) 98 04/04/20 19:53 83 12 97 80 04/04/20 16:00 98.1 86 19 78/47 (57) 96 04/04/20 15:45 89 12 96 80 04/04/20 12:00 98.3 86 16 76/45 (55) 93 04/04/20 11:35 88 12 92 80 04/04/20 09:00 Bi-pap 04/04/20 08:00 98.1 85 20 81/41 (54) 97 04/04/20 07:47 94 12 97 80 04/04/20 04:00 97.3 81 24 88/46 (60) 96 04/04/20 03:29 85 16 96 80 04/04/20 00:00 97.9 76 20 110/51 (70) 95 04/03/20 23:05 75 13 95 80 Intake and Output0 04/03/20 04/04/20 19:00 07:00 Intake Total 1342.5 ml 860.0 ml Output Total 700 ml Balance 1342.5 ml 160.0 ml IV Total 1142.5 ml 860.0 ml Other 200 ml Output Urine Total 700 ml # Voids 1 Laboratory Tests 04/03/20 23:22: POC Whole Blood Glucose 179H 04/04/20 09:00: Prothrombin Time 12.1H, Prothromb Time International Ratio 1.1, Activated Partial Thromboplast Time 25, Sodium Level 141, Potassium Level 4.3, Chloride Level 107, Carbon Dioxide Level 29, Anion Gap 6, Blood Urea Nitrogen 20H, Creatinine 2.3H, Estimat Glomerular Filtration Rate 20.7, Glucose Level 194H, Calcium Level 8.6, Total Bilirubin 0.3, Aspartate Amino Transf (AST/SGOT) 31, Alanine Aminotransferase (ALT/SGPT) 11L, Alkaline Phosphatase 92, Total Protein 6.1L, Albumin 1.8L, Globulin 4.3, Albumin/Globulin Ratio 0.4L 04/04/20 12:23: POC Whole Blood Glucose [Pending] 04/04/20 16:54: POC Whole Blood Glucose 117H Height (Feet): 5 Height (Inches): 5.00 Weight (Pounds): 219 Objective Obese woman NCAT supple coarse BS RR abd soft, obese no edema Assessment/Plan Status: stable Assessment/Plan: Assessment - metastatic breast cancer - R>L pleural effusion - resp failure - cancer cachexia - rectal stool impaction - Terninal prognosis Recommendations - Laxative PRN - PPI - Reglan - agree with hospice care Jack Connolly MD Apr 04, 2020 21:58
[2020-04-05] VITALS: BP 94/48
[2020-04-05 04:00] VITALS: BP 69/56
[2020-04-05] MEDS: NovoLOG Insulin Flexpen SUBQ SCH ×2 (05:46→12:01)
[2020-04-05] MEDS: Piperacillin/Tazobactam 3.375 GM in NS 110 ML IVPB SCH (05:47)
[2020-04-05 08:00] VITALS: BP 93/61
[2020-04-05] MEDS: Zinc Sulfate 220mg ORAL SCH (09:00)
[2020-04-05] MEDS: Ascorbic Acid 500mg tab ORAL SCH (09:00)
--- NOTE | 2020-04-05 10:33 | Discharge Summary ---
DATE OF ADMISSION: 03/30/2020 DATE OF DISCHARGE: 04/05/2020 ADMISSION DIAGNOSES: 1. Failure to thrive. 2. Poor p.o. intake. 3. Metastatic cancer. DISCHARGE DIAGNOSES: 1. Failure to thrive. 2. Poor p.o. intake. 3. Metastatic cancer. HOSPITAL COURSE: The patient is an unfortunate 74-year-old female with a history of metastatic breast cancer. She was admitted with complaints of poor p.o. intake. She was initially on hospice. Family had requested the patient to be discontinued off hospice, so G-tube can be placed. She was initially evaluated, was scheduled to have a G-tube, but her respiratory status worsened. She had a CAT scan that showed large pleural effusions and diffuse metastatic disease. She underwent a thoracentesis, but her breathing did not improve and family ultimately decided on making the patient comfort measured only. She will be discharged home on home hospice and BiPAP. She will be followed there by the hospice physician. DISCHARGE MEDICATIONS: Please see discharge medication list for discharge medications. DIET: As tolerated. ACTIVITIES: Ad-susan. Dennis Barreto M.D. DR: BENIGNO JOB#: [id number] CC:
[2020-04-05] MEDS: D5 1/2NS w/KCl 30mEq 1000ml 1,000 ML IV SCH (10:43)
[2020-04-05] MEDS: Pantoprazole Inj IVP SCH (10:43)
[2020-04-05 12:00] VITALS: BP 96/61
[2020-04-05 16:00] VITALS: BP 111/53
[2020-04-05] MEDS ORDERED: Tubing IV Secondary IV ONE (16:58)
[2020-04-05] MEDS ORDERED: Piperacillin/Tazobactam 3.375 GM in NS 110 ML IVPB SCH (18:00)
--- NOTE | 2020-04-05 18:19 | Pulmonology Progress Note ---
Subjective ROS Limited/Unobtainable: Yes Allergies: Coded Allergies: No Known Allergies (Unverified , 03/29/20) All Systems: reviewed and negative except above Subjective care noted doing poorly hypotensive on BIPAP seen earlier Objective Last 24 Hour Vital Signs Date Time Temp Pulse Resp B/P (MAP) Pulse Ox O2 Delivery O2 Flow Rate FiO2 04/05/20 16:00 97.1 104 18 111/53 (72) 97 04/05/20 14:58 110 12 93 80 04/05/20 12:00 98.2 54 17 96/61 (73) 93 04/05/20 11:05 104 13 93 80 04/05/20 09:00 100 93/61 04/05/20 09:00 Bi-pap 04/05/20 08:00 97.1 100 16 93/61 (72) 97 04/05/20 06:50 97 14 95 80 04/05/20 04:00 97.7 96 14 69/56 (60) 100 04/05/20 03:44 81 12 97 80 04/05/20 00:00 97.9 92 12 94/48 (63) 96 04/04/20 23:36 76 12 95 80 04/04/20 21:24 Bi-pap 04/04/20 21:00 99 80/65 04/04/20 20:00 97.8 87 22 99/65 (76) 98 04/04/20 19:53 83 12 97 80 Intake and Output 04/04/20 04/05/20 19:00 07:00 # Voids 2 Objective WDWN chronically ill on BIPAP reduced breath sounds bilaterally with noted rhonchi [id number] NABS nontender no CC edema reduced LOC Laboratory Tests 04/05/20 11:05: POC Whole Blood Glucose 164H Assessment/Plan Assessment/Plan ASSESSMENT: pleural effusion, malignant PCM metastatic cancer toxic met encephalopathy acute respiratory failure PLAN agree with plan monitor oxygen home BIPAP agree with hospice dc home today impression, plan, and exam edited and reviewed in detail care discussed with Jerome Chung MD Apr 05, 2020 18:18
--- NOTE | 2020-04-05 18:29 | Surgery Progress Note ---
Surgery Progress Note Subjective Procedure Performed Right thoracentesis Additional Comments spoke with family at bedside as they came to pick her up she and family are happy to go home with hospice care Objective Last 24 Hour Vital Signs Date Time Temp Pulse Resp B/P (MAP) Pulse Ox O2 Delivery O2 Flow Rate FiO2 04/05/20 16:00 97.1 104 18 111/53 (72) 97 04/05/20 14:58 110 12 93 80 04/05/20 12:00 98.2 54 17 96/61 (73) 93 04/05/20 11:05 104 13 93 80 04/05/20 09:00 100 93/61 04/05/20 09:00 Bi-pap 04/05/20 08:00 97.1 100 16 93/61 (72) 97 04/05/20 06:50 97 14 95 80 04/05/20 04:00 97.7 96 14 69/56 (60) 100 04/05/20 03:44 81 12 97 80 04/05/20 00:00 97.9 92 12 94/48 (63) 96 04/04/20 23:36 76 12 95 80 04/04/20 21:24 Bi-pap 04/04/20 21:00 99 80/65 04/04/20 20:00 97.8 87 22 99/65 (76) 98 04/04/20 19:53 83 12 97 80 I&O Intake and Output 04/04/20 04/05/20 19:00 07:00 # Voids 2 Cardiovascular: RSR Respiratory: decreased breath sounds Abdomen: soft, non-tender, present bowel sounds Extremities: edema, no cyanosis Laboratory Tests Test 04/05/20 11:05 POC Whole Blood Glucose 164 MG/DL (74-106) H Plan Problems: (1) Decubitus skin ulcer Assessment & Plan: Pt presented on admission with Obesity, Multiple Pressure Injuries.DTPI Medial/Posterior upper R thigh. Surrounding skin is erythematous. Non-Blanchable erythema Sacrum with scattered moist pink epithelial within base of wound. Full Thickness Pressure Injury L Buttocks(L)2.5cm x (W)1.2cm. Base of wound is moist ,disha ,25% slough noted. Edges are macerated. Small amt serosanguineous exudate noted.non-blanchable erythema periwound. Full Thickness Pressure Injury L Ischium. (L)2.5cm x (W)0.5cm x (D)0.2cm. Base of wound is disha with scattered slough within base of wound. Edges are adherent but macerated. Surrounding non-blanchable erythema without induration. R Heel is boggy with non-blanchable erythema. L Heel is boggy with Non-Blanchable erythema. Tx.Plan: Cleanse Wounds L Buttocks with Saline. Apply Therahoney. Apply Moisture Barrier periwound. Cover with Optifoam drsg Daily and prn. Cleanse wound L Ischium with Saline, Apply Therahoney. Apply Moisture Barrier Paste periwound. Cover with Optifoam drsg Daily and prn. Apply Moisture Barrier Paste to Sacrum. Cover with Optifoam drsg. Change every 3 days and prn. Apply Moisture Barrier Paste to medial/posterior upper R thigh . Cover with Optifoam drsg. Change every 7 days and prn. Reposition at least every 2hours or as tolerated. Off-load heels with Pillow. APM/KYRA Mattress overlay. (2) Pneumonia (3) FTT (failure to thrive) in adult Assessment & Plan: DAILY ESTIMATED NEEDS: Needs based on Wound/ 62kg abw 25-30 kcals/kg 9442-8985 total kcals 1.5-2 g protein/kg 93-124 g total protein 25-30 mL/kg 3288-7955 total fluid mLs NUTRITION DIAGNOSIS: Increased protein and micronutrients needs R/T wound healing as evidenced by pt admitted w/ full thickness wounds @ lt buttock and lt ischium, and DTPI @ medial/posterior upper R thigh, admitted w/ FTT, currently NPO, awaiting ENTRY TABLE OPERATOR evaluation CURRENT DIET:NPO PO DIET RECOMMENDATIONS: Liberalized REGULAR w/ poor PO (texture per ENTRY TABLE OPERATOR) + Glucerna TID w/ meals ENTERAL NUTRITION RECOMMENDATIONS: IF INDICATED -> Glucerna 1.5 @ 45ml/hr x 24 hrs + Prosource 1pkt QD to provide 1080ml, 1620kcal, 89+11g prot, 820ml free water * IF MEDICALLY INDICATED AND GI ACCESS OBTAINED -> rec initiate Glucerna 1.5 @ 15ml/hr x 6hrs, advance 10ml q 4-6 hrs as tolerated to goal rate -> HOB over 30 degrees/ water flush per MD -> add Prosource 1pkt QD to better meet increased protein needs ADDITIONAL RECOMMENDATIONS: * Calibrated bedscale wt * W/ oral diet - rec Calorie Count x 48 hrs * Rec appetite stimulant * Wound healing: add MVI w/ mineral x1, Vit C 500mg BID ZnSO4 220mg QD x 10 days Giancarlo BID w/ diet order * Monitor BGs for hypoglycemia while NPO (4) Episode of generalized weakness (5) Metastasis Assessment & Plan: diffuse chest wall mets hx breast ca remission no external lesion or breakdown chest wall fullness left side planned hospice diet possible right malignant effusion large desaturating thora done 1.5L out Chest: There is extensive destruction of the manubrium. This appears to be associated with an ill-defined soft tissue opacity extending both deep and superficial to the manubrium, the boundaries of which are difficult to define given the absence of IV contrast appears to measure approximately 6.4 cm AP by 4 cm transverse by 5 cm craniocaudad. There is also destruction of the medial clavicles bilaterally. Mixed osteolytic osteosclerotic process is also seen involving the bilateral first and second ribs as well as the upper thoracic spine. Mixed osteolytic and osteoblastic process is also seen involving the body of the sternum. There is what appears to be a mostly healed pathologic fracture of the distal right clavicle. Numerous osteoblastic lesions are seen involving the cervical and thoracic spine, appearing to be mostly spared the lumbar spine with the possible exception of L1. There is questionably an osteoblastic process involving the intertrochanteric region of the right femur. No definite pelvic lesions are demonstrated. There is a large right pleural effusion. This results in compressive atelectasis of most of the right lower lobe as well as a significant portion of the right upper lobe. Some atelectasis and/or consolidation is also seen in the medial right middle lobe. There is also possibly some consolidation in the right upper lobe. There is a small to moderate left pleural effusion. This results in compressive atelectasis of a portion of the left lower lobe. Numerous linear opacities are seen elsewhere in the left lower lobe, as well as some nodular appearing consolidation. Numerous nodular subpleural opacities are seen in the upper and lower lobe on the left, as well as numerous intraparenchymal noncalcified nodules on the left. The heart size is normal. There is a small amount of pericardial fluid. There is also some soft tissue thickening within the pericardial fat adjacent to the anterior wall of the left lateral ventricle. There are prominent but not frankly enlarged mediastinal lymph nodes No axillary or chest wall mass or adenopathy is demonstrated. Surgical clips are seen in the left axilla and there is evidence of prior left mastectomy. Abdomen pelvis: The gallbladder is filled with high attenuation material. This may reflect contrast from a prior contrast study or milk of calcium bile. Lack of IV contrast limits assessment of the solid organs. A calcified granuloma is seen within the liver. No other focal liver lesions are demonstrated. The bile ducts are unremarkable. The pancreas is slightly atrophic. The spleen, adrenals, kidneys are unremarkable. No retroperitoneal or mesenteric mass or adenopathy. No pelvic mass or adenopathy. The uterus and ovaries are unremarkable. The rectum is distended with dense feces, measures up to 7 cm in diameter. There is mild rectal wall thickening as well as some thickening of the presacral fat. Lack of enteric contrast limits assessment of the remainder of the GI tract. Dense stool is seen elsewhere within the colon. No evidence of diverticulosis or diverticulitis. No small bowel distention. No free or loculated intraperitoneal gas or fluid is evident. The stomach and duodenum are unremarkable. The bones demonstrate degenerative spondylosis changes in addition to the findings previously reported IMPRESSION: Extensive destruction of the manubrium with associated soft tissue mass, as well as destructive changes involving the upper ribs, the medial clavicles, the body of the sternum, the upper thoracic spine. There are also osteoblastic lesions of the remainder of the thoracic spine. Suspect that this represents disseminated metastatic neoplasm, particularly in view of evidence of prior mastectomy. However, the relative localization to the upper axial skeleton and relative sparing of the lower axial skeleton is somewhat unusual, and a more localized inflammatory process or other process such as postradiation changes should also be considered. Healed pathologic fracture of the distal right clavicle Large right pleural effusion with resultant compressive atelectasis of much of the right lower lobe and upper lobe. Small to moderate left pleural effusion with resulting compressive atelectatic changes Numerous nodular subpleural opacities in the left upper and lower lobe as well as intraparenchymal noncalcified nodules in the left upper lobe. These could be neoplastic or postinflammatory or represent acute inflammation Small amount of pericardial fluid High attenuation material in the gallbladder, may reflect contrast from prior contrast study or milk of calcium bile Rectal distention with feces, could indicate rectal fecal impaction. Mild rectal wall thickening and thickening of the presacral fat. Indicate stercoral colitis. Other findings as noted, including old granulomatous disease within the liver the degenerative spondylosis. Zay Mares Apr 05, 2020 18:29
--- NOTE | 2020-04-05 21:32 | General Progress Note ---
Subjective Allergies: Coded Allergies: No Known Allergies (Unverified , 03/29/20) Subjective Above noted on BIPAP for discharge today Objective Last 24 Hour Vital Signs Date Time Temp Pulse Resp B/P (MAP) Pulse Ox O2 Delivery O2 Flow Rate FiO2 04/05/20 16:00 97.1 104 18 111/53 (72) 97 04/05/20 14:58 110 12 93 80 04/05/20 12:00 98.2 54 17 96/61 (73) 93 04/05/20 11:05 104 13 93 80 04/05/20 09:00 100 93/61 04/05/20 09:00 Bi-pap 04/05/20 08:00 97.1 100 16 93/61 (72) 97 04/05/20 06:50 97 14 95 80 04/05/20 04:00 97.7 96 14 69/56 (60) 100 04/05/20 03:44 81 12 97 80 04/05/20 00:00 97.9 92 12 94/48 (63) 96 04/04/20 23:36 76 12 95 80 Intake and Output 04/04/20 04/05/20 19:00 07:00 # Voids 2 Laboratory Tests 04/05/20 11:05: POC Whole Blood Glucose 164H Height (Feet): 5 Height (Inches): 5.00 Weight (Pounds): 219 Objective Obese woman NCAT, (+) BIPAP supple coarse BS RR abd soft, obese no edema Assessment/Plan Status: stable Assessment/Plan: Assessment - metastatic breast cancer - R>L pleural effusion - resp failure - cancer cachexia - rectal stool impaction - Terminal prognosis Recommendations - Laxative PRN - PPI - Reglan - agree with hospice care Jack Connolly MD Apr 05, 2020 21:32
== END 2020-04-05 16:59 | disposition hospice, home (50) | DRG 254 ==
LOC: EDBD 22:01 → EMR 22:21 → OBSVTOIN 03-30 00:14 → 4E 03-30 00:14 → EDBEDREQ 03-30 01:33
PROC: 0W993ZZ Drainage of Right Pleural Cavity, Percutaneous Approach (ICD-10-PCS; principal; 2020-04-03)
PROC: 5A09457 Assistance with Respiratory Ventilation, 24-96 Consecutive Hours, Continuous Positive Airway Pressure (ICD-10-PCS; 2020-04-03)
DX: R13.10 Dysphagia, unspecified (principal); J69.0 Pneumonitis due to inhalation of food and vomit; J96.00 Acute respiratory failure, unspecified whether with hypoxia or hypercapnia; R64 Cachexia; Z68.41 Body mass index [BMI] 40.0-44.9, adult; Z51.5 Encounter for palliative care; Z66 Do not resuscitate; E66.01 Morbid (severe) obesity due to excess calories; E11.9 Type 2 diabetes mellitus without complications; J98.11 Atelectasis; K56.41 Fecal impaction; C79.89 Secondary malignant neoplasm of other specified sites; R62.7 Adult failure to thrive; Z79.84 Long term (current) use of oral hypoglycemic drugs; L89.896 Pressure-induced deep tissue damage of other site; L89.323 Pressure ulcer of left buttock, stage 3; E66.9 Obesity, unspecified; J90 Pleural effusion, not elsewhere classified; Z85.3 Personal history of malignant neoplasm of breast; M84.411D Pathological fracture, right shoulder, subsequent encounter for fracture with routine healing; E46 Unspecified protein-calorie malnutrition; G92 Toxic encephalopathy; R53.1 Weakness
CPT/HCPCS: 36415; 71045; 71250; 74176; 80053; 81003; 82607; 82746; 82803; 82962; 83036; 83605; 83880; 84134; 84443; 85025; 85610; 85730; 87040; 93005; 93306; 94660; 96361; 96365; 96367; 99285; C8957; J1815; J2765; J7030; U0002